=== PATIENT | female | born 1955 | race Caucasian/White ===

== ENCOUNTER 2021-04-02 16:06 | Outpatient (REF) | payer OTHER, SELFPAY ==
--- NOTE | ~2021-04-02 | XR_ITS ---
EXAMINATION: XR CHEST CLINICAL INFORMATION: Cough COMPARISON: None TECHNIQUE: 2 views of the chest were obtained. FINDINGS: The cardiac silhouette is enlarged. There is an AV heart valve ring. There is an aortic valve stent graft. There is a coronary artery stent. Hilar and mediastinal contours are unremarkable. The lungs are clear. There is no pleural effusion or pneumothorax. There are degenerative changes of the spine. There are median sternotomy wires. XR/XR chest 2V IMPRESSION: Enlarged cardiac silhouette and postoperative changes. No evidence for acute disease in the chest.
== END 2021-04-02 16:07 | disposition home or self-care (01) ==
LOC: HO.HMGCX 16:06
PROVIDERS: PCP Internal Medicine; Visit Provider Physician Assistant Medical
DX: R05.9 Cough, unspecified (principal)
CPT/HCPCS: 71046

== ENCOUNTER 2021-04-03 11:14 | Outpatient (REF) | payer OTHER, SELFPAY ==
[2021-04-03 12:38] LABS: Influenza A PCR NEGATIVE (Negative); Influenza B PCR NEGATIVE (Negative); Resp Syncy Virus RNA Qual PCR NEGATIVE (Negative); SARS COV2 PCR INHOUSE NEGATIVE (Negative)
== END 2021-04-03 11:15 | disposition home or self-care (01) ==
LOC: HO.LNP 11:14
PROVIDERS: Visit Provider Physician Assistant Medical
DX: Z20.822 Contact with and (suspected) exposure to COVID-19 (principal); J06.9 Acute upper respiratory infection, unspecified; R05.9 Cough, unspecified
CPT/HCPCS: 0241U

== ENCOUNTER → 2021-07-18 14:18 | Outpatient (BNVA) | payer OTHER, SELFPAY | PROVIDERS: PCP Internal Medicine; Visit Provider Psychiatry & Neurology Neurology ==

== ENCOUNTER → 2022-07-02 13:59 | Outpatient (BNVA) | payer OTHER, SELFPAY | PROVIDERS: PCP Internal Medicine; Visit Provider Psychiatry & Neurology Neurology | DX: G25.81 Restless legs syndrome (principal) ==

== ENCOUNTER 2023-01-19 15:04 | Outpatient (AMB) | payer OTHER, SELFPAY ==
--- NOTE | 2023-01-19 15:07 | MHC.OFFVIS ---
Intake Vital Signs 01/19/23 15:09 Height 5 ft 3 in Weight 218 lb BMI 38.6 BP 122/88 Blood Pressure Location Lt brachial Position Sitting Pulse 50 Pulse Source Pulse Oximeter Pulse Oximetry (%) 98 Oxygen Delivery Method Room Air Intake Visit Reasons: 3 month follow up-confirmed Intake Note: Pt presents today for RLS , pt states legs feel wobbly and heavy. Pt will need refills today Allergies amiodarone Allergy (Unknown, Verified 01/19/23 15:12) Itching ciprofloxacin [Cipro] Allergy (Unknown, Verified 01/19/23 15:12) Facial Swelling Medication List - Last Reconciled 01/19/23 by Veronica Brand MD albuterol sulfate 90 mcg/actuation 0 mcg inhalation atorvastatin 80 mg PO DAILY clopidogrel 75 mg PO DAILY furosemide 20 mg PO BID levothyroxine 150 mcg PO DAILY lorazepam 0.25 mg (1/2 x 0.5 mg) PO DAILY PRN metoprolol succinate ER 100 mg PO BID nitroglycerin 0.4 mg sublingual BEDTIME pantoprazole 40 mg PO DAILY ropinirole ER 4 mg PO BEDTIME sacubitril-valsartan 49-51 mg (Entresto) 1 tab PO BID spironolactone 25 mg PO DAILY warfarin 2.5 mg PO DAILY HPI HPI Comments History of Present Illness Details ? 66y/o female comes for follow up . 7 month ago she had numbness in the left side of the face. she went to [facility] ER- stroke was ruled out.she still has residual numbness in her left nose and cheek, mild . No pain, no weakness. she had a home sleep study it was c/w sleep apnea- in [place]. she is noncompliant with CPAP. ??? she is on requip 1mg tid and is stable . Occasionally she takes an extra requip. ??? 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 Surgical History Aortic valve replaced H/O hysterectomy for benign disease History of appendectomy Mitral valve replaced Social History Alcohol intake: never Patient Tobacco Use Status: Never used Tobacco Use of substances other than those prescribed or required for medical reasons: No Physical Exam Vital Signs: Last Vital Signs Pulse 50 01/19/23 15:09 BP 122/88 01/19/23 15:09 Pulse Ox 98 01/19/23 15:09 Oxygen Delivery Method Room Air 01/19/23 15:09 BMI result Body Mass Index 38.6 Const General: cooperative, healthy appearing and comfortable Nutritional Appearance: overweight Orientation/consciousness: patient oriented x3 Neuro General: patient oriented x3, gait normal, tone normal, moves all extremities, no focal motor deficits and CN's II-XI intact bilaterally Assessment & Plan Assessment & Plan (1) Restless legs syndrome: Code(s): G25.81 - Restless legs syndrome (2) Obstructive sleep apnea: Code(s): G47.33 - Obstructive sleep apnea (adult) (pediatric) (3) Lt facial numbness: Code(s): R20.0 - Anesthesia of skin Plan CPAP . compliance stressed. Suggested to take melatonin 2mg qhs and lorazepam 0.25mg qhs Switch to ropinirole XR 4mgq hs Suggested magnesium at bedtime compression socks will monitor left face numbness Medications: New ropinirole ER 4 mg PO BEDTIME 30 tabs 6RF Discontinued ropinirole Discontinued Reason: Doctor's Order 1 mg PO TID 90 tabs 6RF Coding Level of Care Code Est Pt Level 4 (41771) Diagnoses Restless legs syndrome G25.81 Obstructive sleep apnea G47.33 Lt facial numbness R20.0
[2023-01-19 15:09] VITALS: BP 122/88; PULSE 50; O2SAT 98; BMI 38.6
== END 2023-01-19 15:33 | disposition home or self-care (01) ==
PROVIDERS: Visit Provider Psychiatry & Neurology Neurology
DX: G25.81 Restless legs syndrome (principal); G47.33 Obstructive sleep apnea (adult) (pediatric); R20.0 Anesthesia of skin
CPT/HCPCS: 99214

== ENCOUNTER → 2023-01-19 15:04 | Outpatient (BNVA) | payer OTHER, SELFPAY | PROVIDERS: Visit Provider Psychiatry & Neurology Neurology ==

== ENCOUNTER 2023-03-12 07:25 | Day surgery (SDC) | payer OTHER, SELFPAY ==
[2023-03-12 07:50] VITALS: BP 148/73; PULSE 80; RESP 16; TEMP 36.9; O2SAT 98; BMI 37.2
--- NOTE | 2023-03-12 08:21 | HO.ANESPROP2 ---
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 Hyperlipidemia HTN (hypertension) GERD (gastroesophageal reflux disease) Heart disease Atrial fibrillation Surgical History Surgical History H/O colonoscopy History of appendectomy H/O hysterectomy for benign disease Aortic valve replaced Mitral valve replaced History of Problems with Anesthesia: No Social History Social History Alcohol intake: never Patient Tobacco Use Status: Never used Tobacco Advance Directives: No Advance Directives Information Provided: Yes Meds Allergies Allergy/AdvReac Type Severity Reaction Status Date / Time amiodarone Allergy Unknown Itching Verified 01/19/23 15:12 ciprofloxacin [Cipro] Allergy Unknown Facial Verified 01/19/23 15:12 Swelling Home Medications Medication Instructions Recorded Confirmed Last Taken Type albuterol sulfate 90 mcg/actuation 0 mcg inhalation 04/02/21 01/19/23 Unknown History aerosol inhaler atorvastatin 80 mg tablet 80 mg PO DAILY 04/02/21 01/19/23 Unknown History clopidogrel 75 mg tablet 75 mg PO DAILY 04/02/21 01/19/23 Unknown History metoprolol succinate 100 mg 100 mg PO BID 04/02/21 01/19/23 Unknown History tablet,extended release 24 hr nitroglycerin 0.4 mg sublingual 0.4 mg sublingual BEDTIME 04/02/21 07/02/22 Unknown History tablet pantoprazole 40 mg tablet,delayed 40 mg PO DAILY 04/02/21 01/19/23 Unknown History release sacubitril 49 mg-valsartan 51 mg 1 tab PO BID 04/02/21 01/19/23 Unknown History tablet (Entresto) spironolactone 25 mg tablet 25 mg PO DAILY 04/02/21 01/19/23 Unknown History warfarin 2.5 mg tablet 2.5 mg PO DAILY 04/02/21 01/19/23 Unknown History furosemide 20 mg tablet 20 mg PO BID 01/19/23 01/19/23 Unknown History levothyroxine 125 mcg tablet 150 mcg PO DAILY 01/19/23 01/19/23 Unknown History Exam Exam Date and Time: March 12, 2023 0821 Height,Weight and Vital Signs: Height 5 ft 3 in Weight 95.254 kg Last Vital Signs Temp 98.5 F 03/12/23 07:50 Pulse 80 03/12/23 07:50 Resp 16 03/12/23 07:50 BP 148/73 H 03/12/23 07:50 Pulse Ox 98 03/12/23 07:50 O2 Del Method Room Air 03/12/23 07:50 Airway Mallampati Class: II (edentulous) TM Dist: >3cm Neck ROM: Full Denture: Upper and Lower Loose/Missing/Broken Teeth: Yes, Upper and Lower Heart: irreg irregular rhythm Lungs: CTA Assessment and Plan Assessment Anesthesia Assessment: Anesthesia Plan Discussed and Chart Reviewed Final Anesthetic Review History of Problems with Anesthesia: No NPO: Yes ASA Class: III Final Preanesthetic Review: Meds/Allgs Chart Reviewed, Consent Obtained/Reviewed and Anes Risks/Benef Reviewed Patient Risk: Intermediate Procedure Risk: Low Anesthetic Plan Anesthetic Plan: MAC: Disposition: Standard PACU
--- NOTE | 2023-03-12 09:05 | MHC.SHP ---
Pre-Procedural Eval Section A Date of Service: 03/12/23 Section B Chief Complaint: screening Details of Present Illness: see h&p nochanges Relevant Family History (Specify if Yes): No Relevant Social History: None Present Medications: see Short Stay Collaborative assessment Medical History: No relevant PMH History of Previous Operations: No relevant previous surgery Allergies: Allergies Allergy/AdvReac Type Severity Reaction Status Date / Time amiodarone Allergy Unknown Itching Verified 01/19/23 15:12 ciprofloxacin [Cipro] Allergy Unknown Facial Verified 01/19/23 15:12 Swelling Review of Systems Sugical H&P ROS: Negative: Constitution, Cardiovascular, Respiratory, Neurological, Psychiatric, Hem-Onc, Allergic/Immunologic, Gastrointestinal, Genitourinary, Musculoskeletal, Integumentary, Endocrine and Eyes/Ears/Nose/Throat Exam Surgical H&P Exam: Normal: HEENT, Normal: Heart, Normal: Lungs, Normal: Extremities, Normal: Abdomen, Normal: Skin and Normal: Neurological Plan Diagnosis/Plan: Unchanged I have reviewed the history and physical and performed a pertinent physical examination on my patient. No changes have occurred unless specified. Time Spent With Patient Time: Total time managing care of this patient today ____ minutes.
[2023-03-12 09:45] VITALS: BP 119/99; PULSE 87; RESP 18; TEMP 36.3; O2SAT 95
[2023-03-12 09:48] VITALS: O2SAT 97
--- NOTE | 2023-03-12 09:51 | PM.OP ---
Brief Operative Note Date of Service: 03/12/23 Pre-op diagnosis: see H&P no changes Post-op diagnosis: same Surgeon: Andrew Hernandez MD Anesthesia: MAC Was an Plumber Assistant used for this Procedure?: No Estimated blood loss (mL): 2 Pathology: other Condition: stable Disposition: PACU
[2023-03-12 10:00] VITALS: BP 123/57; PULSE 77; RESP 15; TEMP 36.2; O2SAT 97
--- NOTE | 2023-03-12 10:15 | OP_ITS ---
DATE OF SERVICE: 03/12/2023 SURGEON: Andrew Hernandez MD INDICATIONS: Colon cancer screening. PREOPERATIVE DIAGNOSIS: POSTOPERATIVE DIAGNOSIS: PROCEDURE PERFORMED: Colonoscopy to the terminal ileum with biopsy. ESTIMATED BLOOD LOSS: COMPLICATIONS: ANESTHESIA: Monitored anesthesia care. ASSISTANTS: SPECIMENS: DESCRIPTION OF PROCEDURE: A history and physical was performed. The risks and benefits of the procedure were explained to the patient. Informed consent was obtained. The patient was placed in the left lateral decubitus position. A digital rectal exam was performed and was found to be normal. The Olympus pediatric video colonoscope was introduced into the rectum and advanced to the cecum. The cecum was identified by transillumination, palpation, and identification of ileocecal valve. Examination was performed. The scope was removed. She tolerated the procedure well and was returned to the recovery area in stable condition. FINDINGS: The terminal ileum was examined and appeared normal. The visualized colonic mucosa was normal. The quality of the prep was good. In the right colon just above the ileocecal valve, less than 5 mm sessile polyp, which was removed with a biopsy forceps. No other polyps were identified. Retroflexed examination showed some small internal hemorrhoids. IMPRESSION: Colon polyp. RECOMMENDATION: Follow up the biopsy results. MD PAVEL May/MICHEALL / [id number]
== END 2023-03-12 10:35 | disposition home or self-care (01) ==
PROVIDERS: PCP Internal Medicine; Visit Provider Internal Medicine Gastroenterology
PROC: 0DJD8ZZ Inspection of Lower Intestinal Tract, Via Natural or Artificial Opening Endoscopic (ICD-10-PCS; CPT 45378; principal; 2023-03-12 08:50)
DX: Z12.11 Encounter for screening for malignant neoplasm of colon (principal); Z80.0 Family history of malignant neoplasm of digestive organs; D12.2 Benign neoplasm of ascending colon; K64.8 Other hemorrhoids; I48.91 Unspecified atrial fibrillation; I25.2 Old myocardial infarction; I10 Essential (primary) hypertension; Z95.2 Presence of prosthetic heart valve; E78.00 Pure hypercholesterolemia, unspecified; E03.9 Hypothyroidism, unspecified; Z79.01 Long term (current) use of anticoagulants; Z79.899 Other long term (current) drug therapy; Z98.890 Other specified postprocedural states
CPT/HCPCS: 45380; 36415; 85610; 88305

== ENCOUNTER 2023-05-25 14:48 | Outpatient (AMB) | payer OTHER, SELFPAY ==
--- NOTE | 2023-05-25 14:54 | A.OFFVIS_ITS ---
Intake Vital Signs 05/25/23 14:55 Height 5 ft 3 in BMI Reason not done Patient refused/unable BP 132/76 Blood Pressure Location Rt brachial Position Sitting Pulse 78 Pulse Source Pulse Oximeter Pulse Oximetry (%) 99 Oxygen Delivery Method Room Air Intake Visit Reasons: 4m follow up - Confirmed Allergies amiodarone Allergy (Unknown, Verified 05/25/23 14:57) Itching ciprofloxacin [Cipro] Allergy (Unknown, Verified 05/25/23 14:57) Facial Swelling Medication List - Last Reconciled 05/25/23 by Veronica Brand MD albuterol sulfate 90 mcg/actuation 0 mcg inhalation atorvastatin 80 mg PO DAILY clopidogrel 75 mg PO DAILY furosemide 20 mg PO BID ketorolac 0.5% 1 drp ophthalmic (eye) QID levothyroxine 150 mcg PO DAILY lorazepam 0.25 mg (1/2 x 0.5 mg) PO DAILY PRN metoprolol succinate ER 100 mg PO BID nitroglycerin 0.4 mg sublingual BEDTIME pantoprazole 40 mg PO DAILY ropinirole 1 mg PO TID ropinirole ER 4 mg PO BEDTIME sacubitril-valsartan 49-51 mg (Entresto) 1 tab PO BID spironolactone 25 mg PO DAILY warfarin 2.5 mg PO DAILY HPI HPI Comments History of Present Illness Details ? 67y/o female comes for follow up . she was admitted for a CVA ? retinal artery occlusion. she has left visual field loss. she was at [facility] . she was seen by retina specialist who gave her eye drops . she had a home sleep study it was c/w sleep apnea- in [place]. she was noncompliant with CPAP but declines repeat study. ??? she is on requip XR 4mg qhs and is stable . Occasionally she takes an extra requip. ??? 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 Hyperlipidemia HTN (hypertension) GERD (gastroesophageal reflux disease) Heart disease Atrial fibrillation Surgical History H/O colonoscopy History of appendectomy H/O hysterectomy for benign disease Aortic valve replaced Mitral valve replaced Social History Alcohol intake: never Patient Tobacco Use Status: Never used Tobacco Physical Exam Vital Signs: Last Vital Signs Pulse 78 05/25/23 14:55 BP 132/76 05/25/23 14:55 Pulse Ox 99 05/25/23 14:55 Oxygen Delivery Method Room Air 05/25/23 14:55 Const General: cooperative, healthy appearing and comfortable Nutritional Appearance: overweight Orientation/consciousness: patient oriented x3 Neuro General: patient oriented x3, gait normal, tone normal, moves all extremities, no focal motor deficits and CN's II-XI intact bilaterally Assessment & Plan Assessment & Plan (1) Restless legs syndrome: Code(s): G25.81 - Restless legs syndrome (2) Obstructive sleep apnea: Code(s): G47.33 - Obstructive sleep apnea (adult) (pediatric) (3) Lt facial numbness: Code(s): R20.0 - Anesthesia of skin Plan Declines CPAP or repeta study . discussed baout [facility]. she will call me if she decides to go forward . Ropinirole XR 4mgq hs Suggested magnesium at bedtime compression socks will monitor left face numbness Medications: Discontinued ropinirole Discontinued Reason: Patient no longer taking 1 mg PO TID 90 tabs 0RF Coding Level of Care Code Est Pt Level 4 (79554) Diagnoses Restless legs syndrome G25.81 Obstructive sleep apnea G47.33 Lt facial numbness R20.0
[2023-05-25 14:55] VITALS: BP 132/76; PULSE 78; O2SAT 99
== END 2023-05-25 15:11 | disposition home or self-care (01) ==
PROVIDERS: PCP Internal Medicine; Visit Provider Psychiatry & Neurology Neurology
DX: G25.81 Restless legs syndrome (principal); G47.33 Obstructive sleep apnea (adult) (pediatric); R20.0 Anesthesia of skin
CPT/HCPCS: 99214

== ENCOUNTER → 2023-05-25 14:48 | Outpatient (BNVA) | payer OTHER, SELFPAY | PROVIDERS: PCP Internal Medicine; Visit Provider Psychiatry & Neurology Neurology | DX: G25.81 Restless legs syndrome (principal); G47.33 Obstructive sleep apnea (adult) (pediatric); R20.0 Anesthesia of skin ==

== ENCOUNTER 2024-02-03 15:09 | Outpatient (AMB) | payer MEDICARE, SELFPAY ==
--- NOTE | 2024-02-03 15:45 | MHC.OFFVIS ---
Vital Signs 02/03/24 15:46 Height 5 ft 3 in BMI Reason not done Patient refused/unable BP 112/72 Blood Pressure Location Rt brachial Position Sitting Intake Visit Reasons: 6 mo f/u Intake Note: Pt presents for 8 month follow up for left facial numbness. Cut Out Press Operator Required: No Allergies amiodarone Allergy (Unknown, Verified 02/03/24 15:46) Itching ciprofloxacin [Cipro] Allergy (Unknown, Verified 02/03/24 15:46) Facial Swelling Medication List - Last Reconciled 02/03/24 by Veronica Brand MD albuterol sulfate 90 mcg/actuation 0 mcg inhalation atorvastatin 80 mg PO DAILY clopidogrel 75 mg PO DAILY furosemide 20 mg PO BID ketorolac 0.5% 1 drp ophthalmic (eye) QID levothyroxine 150 mcg PO DAILY lorazepam 0.25 mg (1/2 x 0.5 mg) PO DAILY PRN metoprolol succinate ER 100 mg PO BID nitroglycerin 0.4 mg sublingual BEDTIME pantoprazole 40 mg PO DAILY ropinirole 1-4 tabs qhs orally bedtime; administer 1-3 hours before bedtime ropinirole ER 4 mg PO BEDTIME 90 days sacubitril-valsartan 49-51 mg (Entresto) 1 tab PO BID spironolactone 25 mg PO DAILY warfarin 2.5 mg PO DAILY HPI Comments Details: ? 68y/o female comes for follow up . she was admitted for a CVA ? In Jun 2022 retinal artery occlusion. she has left visual field loss.left face numbness have resolved she was at [facility] . she was seen by retina specialist who gave her eye drops .Her recent eval - she was told that there was significant improvement she had a home sleep study it was c/w sleep apnea- in [place]. she was noncompliant with CPAP but declines repeat study. ??? she is on requip XR 4mg qhs and was stable but she feels her symptoms have increased and needs a higher dose .she is also concerned about the cost. Occasionally she takes an extra requip. ??? 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 Hyperlipidemia HTN (hypertension) GERD (gastroesophageal reflux disease) Heart disease Atrial fibrillation Surgical History H/O colonoscopy History of appendectomy H/O hysterectomy for benign disease Aortic valve replaced Mitral valve replaced Social History Alcohol intake: never Patient Tobacco Use Status: Never used Tobacco Physical Exam Vital Signs: Last Vital Signs BP 112/72 02/03/24 15:46 Const General: cooperative, healthy appearing and comfortable Nutritional Appearance: overweight Orientation/consciousness: patient oriented x3 Neuro General: patient oriented x3, gait normal, tone normal, moves all extremities, no focal motor deficits and CN's II-XI intact bilaterally Assessment & Plan Assessment & Plan (1) Restless legs syndrome: Code(s): G25.81 - Restless legs syndrome Category: Medical (2) Obstructive sleep apnea: Code(s): G47.33 - Obstructive sleep apnea (adult) (pediatric) Category: Medical Plan Declines CPAP or repeat study . discussed about [facility]. she will call me if she decides to go forward . Increase Ropinirole XR 6mgq hs . she will enroll in [facility] pharmacy and call us back Continue requip 0.25 as needed Suggested magnesium at bedtime compression socks Medications: Changed From ropinirole ER 4 mg PO BEDTIME 90 days 90 tabs 6RF To ropinirole ER 6 mg PO BEDTIME 90 days 90 tabs 6RF From ropinirole 1-4 tabs qhs orally bedtime; administer 1-3 hours before bedtime 120 tabs 3RF To ropinirole 1-4 tabs qhs orally bedtime; administer 1-3 hours before bedtime 90 days 360 tabs 3RF Coding Level of Care Code Est Pt Level 4 (15119) Diagnoses Restless legs syndrome G25.81 Obstructive sleep apnea G47.33
[2024-02-03 15:46] VITALS: BP 112/72
== END 2024-02-03 16:03 | disposition home or self-care (01) ==
PROVIDERS: PCP Internal Medicine; Visit Provider Psychiatry & Neurology Neurology
DX: G25.81 Restless legs syndrome (principal); G47.33 Obstructive sleep apnea (adult) (pediatric)
CPT/HCPCS: 99214

== ENCOUNTER → 2024-02-03 15:09 | Outpatient (BNVA) | payer MEDICARE, SELFPAY | PROVIDERS: PCP Internal Medicine; Visit Provider Psychiatry & Neurology Neurology | DX: G25.81 Restless legs syndrome (principal); G47.33 Obstructive sleep apnea (adult) (pediatric) | CPT/HCPCS: 99212 ==

== ENCOUNTER 2024-08-24 09:48 | Outpatient (AMB) | payer MEDICARE, SELFPAY ==
[2024-08-24 10:07] VITALS: BP 106/78; PULSE 80; O2SAT 98; BMI 35.8
--- NOTE | 2024-08-24 10:07 | A.OFFVIS_ITS ---
Vital Signs 08/24/24 10:07 Height 5 ft 3 in Weight 202 lb 2 oz BMI 35.8 BP 106/78 Blood Pressure Location Lt brachial Position Sitting Pulse 80 Pulse Source Pulse Oximeter Pulse Oximetry (%) 98 Oxygen Delivery Method Room Air Intake Visit Reasons: Follow up 6 mo Intake Note: Patient presents for 6 month follow up ELDER. Declines CPAP or repeat study. Ropinirole is out of stock(has been for while) at [facility] looking for the 12mg and she can cut them in half instead. Allergies amiodarone Allergy (Unknown, Verified 08/24/24 10:10) Itching ciprofloxacin [Cipro] Allergy (Unknown, Verified 08/24/24 10:10) Facial Swelling HPI Comments Details: ? 68y/o female comes for follow up for RLS and Sleep apnea. She had a TIA in Jun 2022 with [facility], and complete work up at [facility]. She has L visual file loss and L. sided facial neuropathy which resolved. She sees a retina specialist and now takes Pataday OTC as needed, vision had significantly improved, now wears glasses for reading and driving. She had a Mitral v replacement with [facility] valve and / Aortic Valve stent replacement, She had a sleep study completed was diagnosed with ELDER, never started CPAP. 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 She is on requip XR 6mg qhs and it helps her to sleep at night as her symptoms are worse at night, with numbness, uncomfortable tingling sensation, she can not stop moving her legs, walks around and stands up. She c/o of swelling in her legs, forgets to put on her compression stockings and edema on 2 diuretics. Her memory, and mood are good most days well managed with Lorazepam 0.5mg as needed for anxiety. Her diet is an ongoing issue and would like to see weight management, however she has lost 20lbs in preparation for her son's wedding. 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 Hyperlipidemia HTN (hypertension) GERD (gastroesophageal reflux disease) Heart disease Atrial fibrillation Surgical History H/O colonoscopy History of appendectomy H/O hysterectomy for benign disease Aortic valve replaced Mitral valve replaced Social History Alcohol intake: never Patient Tobacco Use Status: Never used Tobacco Physical Exam Vital Signs: Last Vital Signs Pulse 80 08/24/24 10:07 BP 106/78 08/24/24 10:07 Pulse Ox 98 08/24/24 10:07 Oxygen Delivery Method Room Air 08/24/24 10:07 BMI result Body Mass Index 35.8 Const General: cooperative, comfortable and no acute distress Orientation/consciousness: patient oriented x3 HEENT Face and sinus: Yes other (mild facial asymmety noted on smile.) Teeth and gingiva: other ([place] score is 4) Eyes Pupils: Equal, round and reactive pupils present Neck Neck: Yes other (Limited ROM to the R. Trapezius and Scalenes tight) Resp Effort & Inspection: normal respiratory effort and able to speak in complete sentences Neuro General: patient oriented x3 Cranial nerves: Yes Facial sensation intact/muscles of mastication intact, Yes Equal, round and reactive pupils present, Yes Normal accommodation reflex present, Yes Nystagmus not present, Yes Midline tongue present, Yes Ability to bilaterally rotate head present (Limited ROM to the R) and Yes Ability to bilaterally elevate shoulders present Gait exam (Neuro): Normal gait present Motor exam (neuro): 5/5 motor strength present throughout and Tremors during motor activity present (LUE hand tremor mild ) Deep tendon reflexes (DTR's): Right triceps reflex intensity grade: 2+, Left triceps reflex intensity grade: 2+, Rt Biceps (C5, C6): 2+, Left biceps reflex intensity grade: 2+, Right brachioradialis reflex intensity grade: 2+, Left brachioradialis reflex intensity grade: 2+, Right patellar reflex intensity grade: 2+ and Left patellar reflex intensity grade: 2+ Coordination: [id number] test normal Psych Appearance: grossly normal Thought process: Normal thought process present Thought content: Normal thought content present Assessment & Plan Assessment & Plan (1) Restless legs syndrome: Code(s): G25.81 - Restless legs syndrome Category: Medical (2) Obstructive sleep apnea: Code(s): G47.33 - Obstructive sleep apnea (adult) (pediatric) Category: Medical (3) Fatigue due to sleep pattern disturbance: Code(s): R53.83 - Other fatigue; G47.9 - Sleep disorder, unspecified Category: Medical (4) Atrial fibrillation: Code(s): I48.91 - Unspecified atrial fibrillation Category: Medical Qualifiers: Atrial fibrillation type: unspecified Qualified Code(s): I48.91 - Unspecified atrial fibrillation Plan Excessive Daytime fatigue will send her for HST RLS will continue her on Ropinorole XR 6mg qhs, will take one additional pill if needed for worsening symptoms as needed due to sleep difficulties. magnesium 400mg PO at bedtime B6 for nerve pain 100mg PO at bedtime Compression stockings daily 2-4 hours at a minimum. Orders: Orders RT home sleep study Today G47.19 - Other hypersomnia Referrals Medical Weight Management Referral E66.01 - Morbid (severe) obesity due to excess calories Medications: Changed From ropinirole ER 6 mg PO BEDTIME 90 days 90 tabs 6RF G25.81 - Restless legs syndrome To ropinirole ER May take 1- tablets daily at bedtime for Restless leg syndrome. 12 mg (2 x 6 mg) PO BEDTIME 90 days 180 tabs 6RF Restless Legs Syndrome MDD 12 mg G25.81 - Restless legs syndrome Refilled lorazepam 0.25 mg (1/2 x 0.5 mg) PO DAILY PRN 15 tabs 3RF anxiety Patient Instructions: Sleep Hygiene provided: set a scheduled bedtime and wake time to help regulate the circadian rhythm and balance the release of pituitary hormones. Sleep in a dark room, temperatures below 68 degrees, and no devices n bed. Limit caffeinated products 6 hours prior to bed, and limit fluids 2-4 hours prior to bed. Gentle night yoga, diffusing essential oils, and playing soft music can be relaxing. RLS will trial her on 6-12 mg of Ropinorole, may use RLS cream, Diclofenac, Lidocaine, Bengay, icy hot, massage and weighted blankets as needed. Compression stockings daily for a minimum of 2-4 hours. Transplant Case Manager - fu in 6 month or sooner, bilateral leg edema, elevate and take diuretics as prescribed. Christine labs requested prior to starting on magnesium 400mg and B6, check B12 and Iron/ folate. Coding Level of Care Code Est Pt Level 4 (09882) Diagnoses Restless legs syndrome G25.81 Obstructive sleep apnea G47.33 Fatigue due to sleep pattern disturbance R53.83; G47.9 Atrial fibrillation, unspecified type I48.91 Atrial fibrillation type: unspecified Time Spent (min) 30 Comment Evaluation of sleep
--- OUTSIDE RECORDS SUMMARY | 2024-08-24 10:57 | XMS_ITS | Patient Health Record ---
Author Organization [facility] Address [address] [facility] [address] [place] [address] Care Team Providers Care Director Global Sales Name Role Phone Sarah Lopez Unavailable [phone] Allergies Allergen (clinical drug ingredient) Drug/Non Drug Allergy documented on EMR Reaction Allergy Type Onset Date Status amiodarone Amiodarone HCl Hot Feeling Drug Allergy Active ciprofloxacin Cipro Face Swelling Drug Allergy Active Reason For Referral No Information Medications Medication SIG (Take, Route, Frequency, Duration) Notes Start Date End Date Status rOPINIRole HCl 0.25 MG TAKE 1 TABLET BY MOUTH FOUR TIMES A DAY Oral for 90 Active Warfarin Sodium 2.5 MG 1 tablet Orally a s directed Active Metoprolol Succinate ER 100 MG 1 tablet Orally BID am and pm Active Spironolactone 25 MG 1 tablet Orally Active LORazepam 0.5 MG 0.5 ml as needed Orally as needed Active Atorvastatin Calcium 80 MG 1 tablet Orally an night Active Lasix 20 MG 1 tablet Orally as needed Unknown dose Active Losartan Potassium 50 MG 1 tablet Orally Twice a day Active Nitroglycerin 0.4 MG Sublingual as needed Active Pantoprazole Sodium 40 MG 1 tablet Orall y Once a day Active Clopidogrel Bisulfate 75 MG 1 tablet Orally Once a day Active Isosorbide Mononitrate ER 30 MG TAKE 1 TABLET BY MOUTH IN THE MORNING Oral for 90 Active Levothyroxine Sodium 125 MCG 1 tablet on an empty stomach in the morning Orally Once a day Active Social History Tobacco Use: Social History Observation Description Date Details (start date - stop date) Never Smoker NA - NA Tobacco Use/Smoking Question Answer Notes Are you a nonsmoker Alcohol Screen (Audit-C) Question Answer Notes Did you have a drink containing alcohol in the p ast year? No Points 0 Interpretation Negative Sexual History Question Answer Notes Had sex in the past 12 months (vaginal, oral, or anal)? No Have you ever had a Sexually transmitted disease ? No Problems Problem Type SNOMED Code ICD Code Onset Dates Problem Status W/U Status Risk Notes Problem Postmenopausal atrophic vaginitis (70434480) Postmenopausal atrophic vaginitis (N95.2) Active confirmed Problem Rheumatic heart disease (81159454) Rheumatic heart disease, unspecified (I09.9) Active confirmed Plan Of Treatment Pending Test Test Name Order Date MAMMOGRAM, SCREENING 12/11/2019 BONE DENSITY 02/11/2018 MM Digital Mammo Screening 12/11/2019 Insurance Providers Payer Name Payer Address Payer Phone Subscriber Number Group Number Insured Name Patient Relationship to Insured Coverage Start Date Coverage End Date [facility] [address] [place] [address] [id number] DIPTI TRISTAN Self - patient is the insured Medical (General) History Medical History History ICD Code Essential (primary) hypertension I10 Nonrheumatic mitral (valve) prolapse I34 .1 Unspecified atrial fibrillation I48.91 Myocardial infarction type 2 I21.A1 Inconclusive mammogram R92.2 Surgical History Surgery Date(Month/Year) Appendectomy Cardiac Stents 2014, 2015 Mitral Valve Replaced Open Heart Surgery 08/01/96 Colonoscopy 2014 Hospitalization History Reason Date(Month/Year) 2 Vaginal Deliveries Heart Cath 02/08/18 Heart Attack 05/16/15, 04/10/16 See Surgical Hx
--- OUTSIDE RECORDS SUMMARY | 2024-08-24 10:57 | XMS_ITS | Encounter Summary ---
Author Organization [facility] [place] [address] Care Team Providers Care Safe Deposit Box Rental Clerk Name Role Phone Soto You MD Primary Care Provider [phone] Reason for Referral * Imaging (Routine) - Closed Specialty Diagnoses / Procedures Referred By Nereida barr Referred To Contact Radiology Diagnoses Abnormality of left breast on screening mammogram Procedures MG Mammo Digital Diagnostic Left Soto You MD [address] [place] [address] Phone: tel: fax: [address] [address] Phone: tel: Referral ID Status Reason Start Date Expiration Date Visits Re quested Visits Authorized [id number] Closed 03/25/2024 03/25/2025 1 1 Reason for Visit * Imaging (Routine) - Closed Specialty Diagnoses / Procedures Referred By Nereida barr Referred To Contact Radiology Diagnoses Abnormality of left breast on screening mammogram Procedures MG Mammo Digital Diagnostic Left Soto You MD [address] [place] [address] Phone: tel: fax: [address] [address] Phone: tel: Referral ID Status Reason Start Date Expiration Date Visits Re quested Visits Authorized [id number] Closed 03/25/2024 03/25/2025 1 1 Encounter Details Date Type Department Care Team (Latest Contact Info) Description 08/18/2024 8:10 AM EDT - 08/18/2024 11:59 PM EDT Hospital [facility] at [address] [phone] Abnormality of left breast on screening mammogram Discharge Disposition: Home or Self Care Social History Tobacco Use Types Packs/Day Years Used Date Smoking Tobacco: Never Smokeless Tobacco: Never Alcohol Use Standard Drinks/Week Comments No 0 (1 standard drink = 0.6 oz pur e alcohol) Comments No Sex and Gender Information Value Date Recorded Sex Assigned at Not on file Legal Sex Female 11:48 AM EST Gender Identity Female 04/29/2020 9:19 AM EST Sexual Orientation Not on file documented as of this encounter Last Filed Vital Signs Vital Sign Reading Time Taken Comments Blood Pressure - - Pulse - - Temperature - - Respiratory Rate - - Oxygen Saturation - - Inhaled Oxygen Concentration - - Weight 90.3 kg (199 lb) 08/18/2024 8:27 AM EDT Height 160 cm (5' 3 ) 08/18/2024 8:27 AM EDT Body Mass Index 35.25 08/18/2024 8:27 AM EDT documented in this encounter Medications at Time of Discharge albuterol HFA (PROAIR HFA ; PROVENTIL HFA ; VENTOLIN HFA) 90 mcg/actuation inhaler INHALE 2 PUFFS BY MOUTH EVERY 6 HOURS NEEDED FOR COUGH/WHEEZE 6.7 each 06/20/2024 atorvastatin (LIPITOR) 80 mg tablet TAKE 1 TABLET BY MOUTH EVERY DAY 90 tablet 06/20/2024 clopidogreL (PLAVIX) 75 mg tablet Take 1 tablet (75 mg total) by mouth 1 (one) time each day. for 90 days cyanocobalamin (VITAMIN B-12) 1,000 mcg tablet Take 1 tablet (1,000 mcg total) by mouth 1 (one) time each day. 30 tablet 2 07/06/2024 dapagliflozin propanediol (FARXIGA) 10 mg tablet Take 1 tablet (10 mg total) by mouth 1 (one) time each day. Entresto 49-51 mg per tablet Take 1 tablet by mouth 2 (two) times a day. ferrous sulfate 325 mg (65 mg iron) EC tablet Take 1 tablet (325 mg total) by mouth 1 (one) time each day with breakfast. Do not crush, chew, or split. 30 each 2 07/06/2024 fluticasone propionate (FLONASE) 50 mcg/actuation nasal spray Administer 2 sprays into affected nostril(s). 07/16/2022 furosemide (LASIX) 20 mg tablet TAKE 2 TABLETS IN THE MORNING AND 1 TABLET IN AFTERNOON levothyroxine (SYNTHROID, LEVOTHROID) 150 mcg tablet TAKE 1 TABLET BY MOUTH EVERY DAY 90 tablet 1 07/31/2024 LORazepam (ATIVAN) 0.5 mg tablet TAKE 1/2 TABLET BY MOUTH DAILY NEEDED FOR ANXIETY 02/03/2024 metoprolol succinate (TOPROL-XL) 100 mg 24 hr tablet Take 1 tablet (100 mg total) by mouth 2 (two) times a day. for 90 days nitroglycerin (NITROSTAT) 0.[address] 1 tablet (0.4 mg total) under the tongue every 5 (five) minutes if needed for chest pain. pantoprazole (PROTONIX) 40 mg EC tablet TAKE 1 TABLET BY MOUTH EVERY DAY 90 tablet 06/20/2024 rOPINIRole (REQUIP) 0.25 mg tablet TAKE 1 TO 4 TABLETS BY MOUTH 1 TO 3 HOURS AT BEDTIME ropinirole HCl (ROPINIROLE ORAL) Take 6 mg by mouth at bedtime. spironolactone (ALDACTONE) 25 mg tablet TAKE 1 TABLET BY MOUTH EVERY DAY 90 tablet 1 07/31/2024 vitamin C tablet Take 1 tablet (100 mg total) by mouth 1 (one) time each day. 30 tablet 2 07/06/2024 warfarin (COUMADIN) 2.5 mg tablet Take 1-2 tablets (2.5-5 mg total) by mouth. 02/22/2024 triamcinolone (KENALOG) 0.1 % cream Apply to affected area 1-2 times daily as needed. 15 g 06/22/2024 documented as of this encounter Discharge Disposition Disposition Code Departure Means Destination Home or Self Care documented in this encounter Plan of Treatment Upcoming Encounters Date Type Department Care Team (Late st Contact Info) Description 09/04/2024 8:30 AM EDT Anticoagulation - Warfarin Visit Coumadin [facility] - [address] [phone] 12/28/2024 8:30 AM EDT Office Visit [facility] - [address] [phone] Soto You MD [address] [place] [address] 02/20/2025 8:00 AM EDT [facility]ment [facility] [address] [phone] documented as of this encounter Procedures Procedure Name Priority Date/Time Associated Diagnosis Comments MG MAMMO DIGITAL DIAGNOSTIC LEFT Routine 08/18/2024 10:34 AM EDT Abnormality of left breast on screening mammogram documented in this encounter Results * MG Mammo Digital Diagnostic Left (08/18/2024 10:34 AM EDT) Anatomical Region Laterality Modality Breast Left Mammography 08/18/2024 9:11 AM EDT Impressions 08/18/2024 9:20 AM EDT Stable appearance of coarse calcifications posteriorly in the upper outer quadrant of the left breast as compared to 02/18/2024 and 02/14/2024. ??Bilateral mammography in 6 months is recommended which will provide for additional short-term follow-up of the left breast and annual mammography of the right breast. BI-RADS CATEGORY: 3 - PROBABLY BENIGN RECOMMENDATION: Short Interval Follow-up is recommended for bilateral breasts in 6 months. Mammo Location: [facility], [address] [place] [address] -------- FINAL REPORT -------- Dictated By: Cuauhtemoc Storey Dictated Date: 08/18/2024 09:11 ET Assigned Physician: Cuauhtemoc Storey Reviewed and Electronically Signed By: Cuauhtemoc Storey Signed Date: 08/18/2024 09:20 ET Workstation ID: [id number] Transcribed By: Self Edit Transcribed Date: 08/18/2024 09:11 ET Narrative 08/18/2024 9:20 AM EDT CLINICAL: The patient is a 68 years Female presenting for follow-up of coarse calcifications posteriorly in the upper-outer quadrant of the left breast. ??As per report of the previous mammogram performed 02/18/2024, the patient is reluctant to undergo biopsy as she has a significant cardiac history and takes Coumadin and Plavix; anticoagulation cannot be discontinued and therefore biopsy required would require a heparin bridge. ??She has therefore opted for continued mammographic surveillance. COMPARISON: Most recently 02/18/2024 and most remotely 12/05/2018. ?? TECHNIQUE: Digital mammography of the left breast in spot magnification true lateral and CC projections is performed. ??Computer aided detection utilizing the iCAD system was utilized. FINDINGS: Again seen is a group of coarse calcifications without significant change as compared to recent prior studies performed 02/18/2024 and 02/14/2024. ??There has been no increase in number of calcifications and no pleomorphism is seen. TISSUE DENSITY: There are scattered areas of fibroglandular density. (BI-RADS category B) Procedure Note Cuauhtemoc Storey MD - 08/18/2024 CLINICAL: The patient is a 68 years Female presenting for follow-up ofcoarse calcifications posteriorly in the upper-outer quadrant of the leftbreast. As per report of the previous mammogram performed 02/18/2024, thepatient is reluctant to undergo biopsy as she has a significant cardiachistory and takes Coumadin and Plavix; anticoagulation cannot bediscontinued and therefore biopsy required would require a heparin bridge.She has therefore opted for continued mammographic surveillance. COMPARISON: Most recently 02/18/2024 and most remotely 12/05/2018. TECHNIQUE: Digital mammography of the left breast in spot magnificationtrue lateral and CC projections is performed. Computer aided detectionutilizing the iCAD system was utilized. FINDINGS: Again seen is a group of coarse calcifications withoutsignificant change as compared to recent prior studies performed 02/18/2024nd 02/14/2024. There has been no increase in number of calcifications andno pleomorphism is seen. TISSUE DENSITY: There are scattered areas of fibroglandular density.(BI-RADS category B) IMPRESSION: Stable appearance of coarse calcifications posteriorly in the upper outerquadrant of the left breast as compared to 02/18/2024 and 02/14/2024.Bilateral mammography in 6 months is recommended which will provide foradditional short-term follow-up of the left breast and annual mammographyof the right breast. BI-RADS CATEGORY: 3 - PROBABLY BENIGN RECOMMENDATION: Short Interval Follow-up is recommended for bilateral breasts in 6 months. Mammo Location: [facility], [facility], [address] [place] [address] -------- FINAL REPORT -------- Dictated By: Cuauhtemoc Storey Dictated Date: 08/18/2024 09:11 ET Assigned Physician: Cuauhtemoc Storey Reviewed and Electronically Signed By: Cuauhtemoc Storey Signed Date: 08/18/2024 09:20 ET Workstation ID: [id number] Transcribed By: Self Edit Transcribed Date: 08/18/2024 09:11 ET Soto You MD IMG BI PROCEDURES Final Result documented in this encounter Visit Diagnoses Diagnosis Abnormality of left breast on screening mammogram documented in this encounter Care Teams Safe Deposit Box Rental Clerk Relationship Specialty Start Date End Date Soto You MD [address] [place] [address] PCP - General Internal Medicine 04/29/16 documented as of this encounter
--- OUTSIDE RECORDS SUMMARY | 2024-08-24 10:57 | XMS_ITS ---
Author Organization [facility] Address [address] [place] [address] Care Team Providers Care Process Expert Name Role Phone Kenyatta FREIRE, Soto Primary Care Provider Andrew Starks Jr REASON FOR VISIT screening Encounters Encounter Location Date Provider Diagnosis [facility] Outpatient [address] [place] [phone] 03/12/2023 Andrew Hernandez Jr Encounter for screening colonoscopy Z12.11 and Colon polyps K63.5 Assessments Encounter Date Diagnosis (ICD Code) Assessment Notes Treatment Notes Treatment Clinical Notes Section Notes 03/12/2023 Encounter for screening colonoscopy (ICD-10 - Z12.11) 03/12/2023 Colon polyps (ICD-10 - K63.5) Plan Of Treatment No Information Progress Notes * KUN ERANYOANAB: 7 (68 yo F)Acc No.[id number]:03/12/2023 COLON WITH MAC Patient:?ERAN TRISTANTHIA Provider:?Andrew Hernandez MD :1955???Age:67 Y???Sex:Female D ate:03/12/2023 Address:[facility] [phone] Pcp:Soto You MD Subjective: * Chief Complaints: * ???1. Screening. * Medical History:? Objective: * Vitals:? Assessment: * Assessment: 1.?Encounter for screening c olonoscopy - Z12.11 (Primary)???2.?Colon polyps - K63.5??? Plan: * Treatment: * Procedure Codes:?95953 COLON OSCOPY AND BIOPSY * * The named appointment provid er may or may not be the originator of this progress note, and it is not deemed complete until electronically signed by the appointment provider. Sign off status: Pending * Provider:?Andrew Hernandez MD Date:?1 Generated for Olaf pope/Jareth/Arsalanitting on:?08/24/2024 10:57 AM EDT
--- OUTSIDE RECORDS SUMMARY | 2024-08-24 10:57 | XMS_ITS | Encounter Summary ---
Author Organization [facility] [place] [address] Care Team Providers Care Perioperative Educator Name Role Phone Soto You MD Primary Care Provider [phone] Encounter Details Date Type Department Care Team (Latest Contact Info) Description 08/14/2024 8:20 AM EDT Anticoagulation - Warfarin Visit Coumadin [address] [phone] H/O mechanical aortic valve replacement (Primary Dx); Hx of mitral valve replacement with mechanical valve Social History Tobacco Use Types Packs/Day Years [...] on file documented as of this encounter Plan of Treatment Upcoming Encounters Date Type Department Care Team (Late st Contact Info) Description 09/04/2024 8:30 AM EDT Anticoagulation - Warfarin Visit [facility] Clinic [address] [phone] 12/28/2024 8:30 AM EDT [facility] [place] [address] [place] [address] Soto You MD [address] [place], [place] 02/20/2025 8:00 AM EDT [facility]ment [facility] [address] [phone] documented as of this encounter Procedures Procedure Name Priority Date/Time Associated Diagnosis Comments POC PROTIME INR BLOOD Routine 08/14/2024 H/O mechanical aortic valve replacement Hx of mitral valve replacement with mechanical valve documented in this encounter Results * POC Protime INR Blood (08/14/2024) Lot Number INR POC 2.5 Prothrombin Time POC Exp Date Blood 08/14/2024 Soto You MD POINT OF CARE TEST ENTER/EDIT OR DERABLES Final Result documented in this encounter Visit Diagnoses Diagnosis H/O mechanical aortic valve replacement- Primary Hx of mitral valve replacement with mechanical valve documented in this encounter Care Teams Perioperative Educator Relationship Specialty Start Date End Date Soto You MD [address] [place] [address] PCP - General Internal Medicine 04/29/16 documented as of this encounter
--- OUTSIDE RECORDS SUMMARY | 2024-08-24 10:57 | XMS_ITS ---
Author Organization [facility] Address [address] [place] [address] Care Team Providers Care Interventional Nurse Name Role Phone Kenyatta FREIRE, [facility] Primary Care Provider Andrew Starks Jr REASON FOR VISIT pathology Encounters Encounter Location Date Provider Diagnosis [facility] [address] [place] [address] 03/18/2023 Andrew Hernandez Jr Plan Of Treatment No Information Progress Notes * HANERAN CLARKYOANAB: 7 (67 yo F)Acc No.[id number]:03/18/2023 Patient:?DIPTI TRISTAN :1955???Age:67 Y???Sex:Female Address:[address] [place] [address] * true * Date:? Generated for Printi ng/Fachkiag/eTransmitting on:?08/24/2024 10:56 AM EDT
--- OUTSIDE RECORDS SUMMARY | 2024-08-24 10:57 | XMS_ITS | Encounter Summary ---
Author Organization [facility] [place] [address] Care Team Providers Care Certifed Refrigeration Operator Name Role Phone Soto You MD Primary Care Provider [phone] Encounter Details Date Type Department Care Team (Latest Contact Info) Description 08/21/2024 8:30 AM EDT Anticoagulation - Warfarin Visit Coumadin [address] [phone] H/O mechanical aortic valve replacement (Primary Dx); [...] EDT Anticoagulation - Warfarin Visit Coumadin Clinic [address] [phone] 12/28/2024 8:30 AM EDT Office Visit [facility] [place] [address] [place] [address] Soto You MD [address] [place], [place] 02/20/2025 8:00 AM EDT [facility]ment [facility] [address] [phone] documented as of this encounter Procedures Procedure Name Priority Date/Time Associated Diagnosis Comments POC PROTIME INR BLOOD Routine 08/21/2024 H/O mechanical aortic valve replacement Hx of mitral valve replacement with mechanical valve documented in this encounter Results * POC Protime INR Blood (08/21/2024) Lot Number INR POC 2.8 Prothrombin Time POC Exp Date Blood 08/21/2024 Soto You MD POINT OF CARE TEST ENTER/EDIT OR DERABLES Final Result documented in this encounter Visit Diagnoses Diagnosis H/O mechanical aortic valve replacement- Primary Hx of mitral valve replacement with mechanical valve documented in this encounter Care Teams Certifed Refrigeration Operator Relationship Specialty Start Date End Date Soto You MD [address] [place] [address] PCP - General Internal Medicine 04/29/16 documented as of this encounter
--- OUTSIDE RECORDS SUMMARY | 2024-08-24 10:57 | XMS_ITS | Patient Health Record ---
Author Organization [facility] Address [address] [place] [address] Care Team Providers Care Computing Machine Operator Name Role Phone Kenyatta FREIRE, [facility] Primary Care Provider Andrew Starks Jr Allergies Allergen (clinical drug ingredient) Drug/Non Drug Allergy documented on EMR Reaction Allergy Type Onset Date Status ciprofloxacin Cipro Unknown Drug Allergy Act lucinda amiodarone Amiodarone HCl Unknown Drug Allergy A ctive Reason For Referral No Information Medications Medication SIG (Take, Route, Frequency, Duration) Notes Start Date End Date Status Pantoprazole Sodium 40 MG TAKE 1 TABLET BY MOUTH ONCE DAILY Oral for 90 Active Clopidogrel Bisulfate 75 MG Oral for 90 Active Lasix 20mg Active Atorvastatin Calcium 80 MG TAKE 1 TABLET BY MOUTH ONCE DAILY Oral for 90 Active Warfarin Sodium 2.5mg Active Levothyroxine Sodium 0.137mg Active Entresto 49-51 MG Oral for 90 Active Nitroglycerin 0.4 MG Sublingual for 7 Active rOPINIRole HCl 1 MG Oral for 30 Active Spironolactone 25 MG Oral for 90 Active MiraLax (colon prep) 17 GM/SCOOP mixed with Gatorade or Crystal Light Orally begin at 5:00 p.m. the day before the procedure for 1 day 01/07/2023 Active Metoprolol Succinate ER 100 MG TAKE 1 TABLET BY MOUTH TWICE DAILY Oral for 90 Active Problems Problem Type SNOMED Code ICD Code Onset Dates Problem Status W/U Status Risk Notes Problem 225892642 Colon cancer screening (Z12.11) Active confirmed Problem 380803864 custodial (current) use of anticoagulants (Z79.01) Active confirmed Problem 348283841 Encounter for other preprocedural examination (Z01.818) Active confirmed Problem 686274732 Family history o f colon cancer (Z80.0) Active confirmed Problem 36428240688002888 custodial curr ent use of diuretic (Z79.899) Active confirmed Plan Of Treatment Future Test Test Name Order Date COLONOSCOPY 04/27/2013 COLONOSCOPY 01/07/2023 Insurance Providers Payer Name Payer Address Payer Phone Subscriber Number Group Number Insured Name Patient Relationship to Insured Coverage Start Date Coverage End Date [facility] [address] [place] [phone] [id number] DIPTI TRISTAN Self - patient is the insured Medical (General) History Medical History History ICD Code Colonoscopy 09/18, hyperplast ic polyp, five-year followup due to family history of colon cancer mitral valve replacement with [facility] V alve Rheumatic fever as a child hypothyroidism elevated cholesterol Atrial fibrillation heart attacks 03/2015,09/2015 ,08/2018,10/2018,[id number], Cardiology: Dr. Bansal phone # [phone] hypertension TAVR 03/26 CPAP, no sleep apnea Restless leg syndrome Surgical History Surgery Date(Month/Year) appendectomy removal of a left ovary and fallopian tu be uterine ablation for bleeding heart surgery-valve replacement x2- dr. bansal
--- OUTSIDE RECORDS SUMMARY | 2024-08-24 10:57 | XMS_ITS | Encounter Summary ---
Author Organization [employer] [facility] [place] [address] Care Team Providers Care Events Administrative Assistant Name Role Phone Soto You MD Primary Care Provider [phone] Encounter Details Date Type Department Care Team (Latest Contact Info) Description 08/07/2024 8:20 AM EST Anticoagulation - Warfarin Visit Coumadin [address] [phone] H/O mechanical aortic valve replacement (Primary Dx); [...] AM EDT Anticoagulation - Warfarin Visit Coumadin [address] [phone] 12/28/2024 8:30 AM EDT Office Visit Adult Medicine [address] [place] [address] Soto You MD [address], [place] 02/20/2025 8:00 AM EDT Appointment [facility] [address] [phone] documented as of this encounter Procedures Procedure Name Priority Date/Time Associated Diagnosis Comments POC PROTIME INR BLOOD Routine 08/07/2024 H/O mechanical aortic valve replacement Hx of mitral valve replacement with mechanical valve documented in this encounter Results * POC Protime INR Blood (08/07/2024) Lot Number INR POC 2.5 Prothrombin Time POC Exp Date Blood 08/07/2024 Soto You MD POINT OF CARE TEST ENTER/EDIT OR DERABLES Final Result documented in this encounter Visit Diagnoses Diagnosis H/O mechanical aortic valve replacement- Primary Hx of mitral valve replacement with mechanical valve documented in this encounter Care Teams Events Administrative Assistant Relationship Specialty Start Date End Date Soto You MD [address] [place] [id number] PCP - General Internal Medicine 04/29/16 documented as of this encounter
--- OUTSIDE RECORDS SUMMARY | 2024-08-24 10:57 | XMS_ITS | Encounter Summary ---
Author Organization [facility] [place] [address] Care Team Providers Care Casing Inspector Name Role Phone Soto You MD Primary Care Provider [phone] Encounter Details Date Type Department Care Team (Latest Contact Info) Description 07/31/2024 8:30 AM EST Anticoagulation - Warfarin Visit Coumadin [address] [phone] H/O mechanical aortic valve replacement (Primary Dx); [...] AM EDT Anticoagulation - Warfarin Visit Coumadin [address] [phone] 12/28/2024 8:30 AM EDT Office Visit Adult Medicine [address] [place] [phone] Soto You MD [address] [place], [place] 02/20/2025 8:00 AM EDT Appointment [facility] at [address] [phone] documented as of this encounter Procedures Procedure Name Priority Date/Time Associated Diagnosis Comments POC PROTIME INR BLOOD Routine 07/31/2024 H/O mechanical aortic valve replacement Hx of mitral valve replacement with mechanical valve documented in this encounter Results * POC Protime INR Blood (07/31/2024) Lot Number INR POC 3.7 Prothrombin Time POC Exp Date Blood 07/31/2024 Soto You MD POINT OF CARE TEST ENTER/EDIT OR DERABLES Final Result documented in this encounter Visit Diagnoses Diagnosis H/O mechanical aortic valve replacement- Primary Hx of mitral valve replacement with mechanical valve documented in this encounter Care Teams Casing Inspector Relationship Specialty Start Date End Date Soto You MD [address] [place] [id number] PCP - General Internal Medicine 04/29/16 documented as of this encounter
--- OUTSIDE RECORDS SUMMARY | 2024-08-24 10:57 | XMS_ITS | Clinical Summary ---
Author Organization [facility] Address [address] [place] [address] Care Team Providers Care Software Client Architect Name Role Phone Soto You MD Primary Care Provider [phone] Allergies Active Allergy Reactions Criticality Noted Date Comments Amiodarone Numbness 11/25/2016 Ciprofloxacin 08/03/2005 Medications pantoprazole (PROTONIX) 40 mg EC tablet TAKE 1 TABLET BY MOUTH EVERY DAY 90 tablet 06/20/19 25 Active atorvastatin (LIPITOR) 80 mg tablet TAKE 1 TABLET BY MOUTH EVERY DAY 90 tablet 06/20/19 25 Active albuterol HFA (PROAIR HFA ; PROVENTIL HFA ; VENTOLIN HFA) 90 mcg/actuation inhaler INHALE 2 PUFFS BY MOUTH EVERY 6 HOURS NEEDED FOR COUGH/WHEEZE 6.7 each 06/20/19 25 Active metoprolol succinate (TOPROL-XL) 100 mg 24 hr tablet Take 1 tablet (100 mg total) by mouth 2 (two) times a day. for 90 days Active warfarin (COUMADIN) 2.5 mg tablet Take 1-2 tablets (2.5-5 mg total) by mouth. 02/22/20 24 025 Active rOPINIRole (REQUIP) 0.25 mg tablet TAKE 1 TO 4 TABLETS BY MOUTH 1 TO 3 HOURS AT BEDTIME Active fluticasone propionate (FLONASE) 50 mcg/actuation nasal spray Administer 2 sprays into affected nostril(s). 07/16/19 23 Active clopidogreL (PLAVIX) 75 mg tablet Take 1 tablet (75 mg total) by mouth 1 (one) time each day. for 90 days Active Entresto 49-51 mg per tablet Take 1 tablet by mouth 2 (two) times a day. Active furosemide (LASIX) 20 mg tablet TAKE 2 TABLETS IN THE MORNING AND 1 TABLET IN AFTERNOON Active LORazepam (ATIVAN) 0.5 mg tablet TAKE 1/2 TABLET BY MOUTH DAILY NEEDED FOR ANXIETY 02/03/20 24 Active dapagliflozin propanediol (FARXIGA) 10 mg tablet Take 1 tablet (10 mg total) by mouth 1 (one) time each day. Active nitroglycerin (NITROSTAT) 0.[address] 1 tablet (0.4 mg total) under the tongue every 5 (five) minutes if needed for chest pain. Active ropinirole HCl (ROPINIROLE ORAL) Take 6 mg by mouth at bedtime. Active ferrous sulfate 325 mg (65 mg iron) EC tablet Take 1 tablet (325 mg total) by mouth 1 (one) time each day with breakfast. Do not crush, chew, or split. 30 each 2 07/06/19 25 025 Active vitamin C tablet Take 1 tablet (100 mg total) by mouth 1 (one) time each day. 30 tablet 2 07/06/19 25 025 Active cyanocobalamin (VITAMIN B-12) 1,000 mcg tablet Take 1 tablet (1,000 mcg total) by mouth 1 (one) time each day. 30 tablet 2 07/06/19 25 Active spironolactone (ALDACTONE) 25 mg tablet TAKE 1 TABLET BY MOUTH EVERY DAY 90 tablet 1 07/31/19 25 Active levothyroxine (SYNTHROID, LEVOTHROID) 150 mcg tablet TAKE 1 TABLET BY MOUTH EVERY DAY 90 tablet 1 07/31/19 25 Active levothyroxine (SYNTHROID, LEVOTHROID) 150 mcg tablet Take 1 tablet (150 mcg total) by mouth 1 (one) time each day. 025 Discontinued spironolactone (ALDACTONE) 25 mg tablet Take 1 tablet (25 mg total) by mouth 1 (one) time each day. 025 Discontinued triamcinolone (KENALOG) 0.1 % cream Apply to affected area 1-2 times daily as needed. 15 g 06/22/19 25 025 Active Problems Problem Noted Date Diagnosed Date H/O mechanical aortic valve replacement 04/18/20 24 Hx of mitral valve replacement with mechanical v alve 04/18/2024 COVID-19 virus infection 05/22/2020 Adjustment disorder with anxious mood 12/20/2018 Depression 04/21/2011 Sleep apnea 01/27/2011 Assessment & Plan (06/22/2024 9:30 AM EST): Because she can't tolerate the CPAP this is untreated. I encouraged her to retry and follow up with her specialist in regards to options. Renal cyst 10/12/2008 Overview (04/24/2024): CT 09/13, some calcification A-fib 05/10/2007 Assessment & Plan (06/22/2024 9:30 AM EST): Anticoagulated. Follows with coumadin clinic. Continues on metoprolol as well. Orders: Complete blood count; Future Comprehensive metabolic panel; Future Ferritin; Future Iron and TIBC; Future Thyroid stimulating hormone; Future Vitamin B12; Future Encounters Date Type Department Care Team Description 08/21/2024 8:30 AM EDT Anticoagulation - Warfarin Visit [facility] [address] [phone] H/O mechanical aortic valve replacement (Primary Dx); Hx of mitral valve replacement with mechanical valve 08/18/2024 8:10 AM EDT - 08/18/2024 11:59 PM EDT [facility] [address] [phone] Abnormality of left breast on screening mammogram Discharge Disposition: Home or Self Care 08/14/2024 8:20 AM EDT Anticoagulation - Warfarin Visit [facility] [address] [phone] H/O mechanical aortic valve replacement (Primary Dx); Hx of mitral valve replacement with mechanical valve 08/07/2024 8:20 AM EST Anticoagulation - Warfarin Visit [address] [phone] H/O mechanical aortic valve replacement (Primary Dx); Hx of mitral valve replacement with mechanical valve 07/31/2024 8:30 AM EST Anticoagulation - Warfarin Visit [address] [phone] H/O mechanical aortic valve replacement (Primary Dx); Hx of mitral valve replacement with mechanical valve 07/17/2024 8:30 AM EST Anticoagulation - Warfarin Visit [address] [phone] H/O mechanical aortic valve replacement (Primary Dx); Hx of mitral valve replacement with mechanical valve 07/06/2024 8:40 AM EST Anticoagulation - Warfarin Visit [address] [phone] H/O mechanical aortic valve replacement (Primary Dx); Hx of mitral valve replacement with mechanical valve 06/29/2024 8:30 AM EST Anticoagulation - Warfarin Visit [address] [phone] H/O mechanical aortic valve replacement (Primary Dx); Hx of mitral valve replacement with mechanical valve 06/22/2024 9:00 AM EST Office Visit Adult Medicine [address] [phone] Pepe Bolanos PA RLS (restless legs syndrome) (Primary Dx); Chronic atrial fibrillation (CMS/HCC); Sleep apnea, unspecified type; At risk for decreased bone density; Irritant contact dermatitis, unspecified trigger 06/22/2024 8:30 AM EST Anticoagulation - Warfarin Visit [address] [phone] H/O mechanical aortic valve replacement (Primary Dx); Hx of mitral valve replacement with mechanical valve 06/12/2024 8:00 AM EST [facility] [address] [phone] H/O mechanical aortic valve replacement (Primary Dx); Hx of mitral valve replacement with mechanical valve 06/05/2024 8:30 AM EST Anticoagulation - Warfarin Visit [address] [phone] H/O mechanical aortic valve replacement (Primary Dx); Hx of mitral valve replacement with mechanical valve 05/29/2024 9:00 AM EST Anticoagulation - Warfarin Visit [address] [phone] H/O mechanical aortic valve replacement (Primary Dx); Hx of mitral valve replacement with mechanical valve from Last 3 Months Immunizations Name Administration Dates Next Due H1N1 Inj Preservative Free 04/26/2009 Influenza trivalent, with pr eservative (Fluzone; Afluria) 6mo and older 04/21/2011 Influenza, Unspecified 03/22/2015,03/18/2014 Surgical History Surgery Date Site/Laterality Comments CARDIAC SURGERY PROCEDURE: HISTORICAL HEART SURGERY(ASD,VSD,VALVES); COMMENT: mitral valve replacement COLONOSCOPY 2004 PROCEDURE: HISTORICAL COLONOSCOPY; COMMENT: Dr Hernandez; reported by patient as normal CARDIAC CATHETERIZATION 04/14/16 PROCEDURE: HISTORICAL CARDIAC CATH; COMMENT: JAVON to RCA, normal LVEF Medical History Medical History Date Comments Historical Medical DX 05/10/2007 DX:A fib Heart valve replaced by other means 08/03/2005 DX:Heart valve replaced by other means; COMMENT: [facility]. Irritable bowel syndrome 08/03/2005 DX:Irri table bowel syndrome Pure hypercholesterolemia 08/03/2005 DX:Pur e hypercholesterolemia; COMMENT: Pt declined statin treatment due to muscle pain Unspecified hypothyroidism 08/03/2005 DX:Un specified hypothyroidism Historical Medical DX 10/12/2008 DX:Kidney cyst; COMMENT: CT 09/13, some calcification Family history of colon cancer D X:Family history of colon cancer HTN (hypertension) 05/16/2010 DX:HTN (hyper tension) NSTEMI (non-ST elevated myoc ardial infarction) (CMS/HCC) DX:NSTEMI (non-ST elevated myocardial infarction) (HCC) Family History Medical History Relation Name Comments No Known Problems Daughter No Known Problems Father No Known Problems Maternal Grandfather No Known Problems Maternal Grandmother Cataracts Mother Colon cancer Mother age 65 No Known Problems Other No Known Problems Paternal Grandfather No Known Problems Paternal Grandmother No Known Problems Sister Blindness Neg Hx Breast cancer Neg Hx Glaucoma Neg Hx Macular degeneration Neg Hx Strabismus Neg Hx Relation Name Status Comments Daughter Father Maternal Grandfather Maternal Grandmother Mother Other Paternal Grandfather Paternal Grandmother Sister Social History Tobacco Use Types Packs/Day Years [...] AM EST Sexual Orientation Not on file Obstetrics History Para Term AB IAB SAB Ectopic Multiple Livin g Live Births 2 Last Filed Vital Signs Vital Sign Reading Time Taken Comments Blood Pressure 102/60 06/22/2024 8:27 AM EST Pulse 78 06/22/2024 8:27 AM EST Temperature 36.6 ??C (97.9 ??F) 06/22/2024 8:27 AM ES T Respiratory Rate 16 06/22/2024 8:27 AM EST Oxygen Saturation 97% 06/22/2024 8:27 AM EST Inhaled Oxygen Concentration - - Weight 90.3 kg (199 lb) 08/18/2024 8:27 AM EDT Height 160 cm (5' 3 ) 08/18/2024 8:27 AM EDT Body Mass Index 35.25 08/18/2024 8:27 AM EDT Plan of Treatment Upcoming Encounters Date Type Department Care Team (Late st Contact Info) Description 09/04/2024 8:30 AM EDT Anticoagulation - Warfarin Visit Coumadin [address] [phone] 12/28/2024 8:30 AM EDT Office Visit Adult Medicine [address] [phone] Soto You MD [address] [place] [address] 02/20/2025 8:00 AM EDT [facility]oint[facility] [address] [phone] Health Maintenance Due Date Last Done Comments DTaP,Tdap,and Td Vaccines (1 - Tdap) 12/28/1975 Pneumococcal Vaccine: 50+ Years (1 of 2 - PCV) 12/28/1975 Zoster Vaccines (1 of 2) 2006 RSV Immunization Patients 60+ Years Old (1 - Risk 60-74 years 1-dose series) 2016 Colorectal Cancer Screening: Colonoscopy 04/22/2020 Depression Screening 04/22/2020 Hepatitis C Screening 04/22/2020 Medicare Annual Wellness Visit 04/22/2020 Osteoporosis Screening (Bone Density Screening) 04/22/2020 Social Influencers of Health Screening 04/22/2020 Falls Risk Assessment 2021 COVID-19 Vaccine ( season) 2024 08/10/2020, 07/20/2020 Influenza Vaccine (#1) 2024 5, 03/18/2014, 04/21/2011, Additional history exists Hypertension/CHF/CAD Annual BMP Blood Test 07/06/2025 07/06/2024, 12/15/2023, 12/15/2023 Breast Cancer Screening 08/18/2026 08/19/19 25, 02/14/2024, 02/14/2024, Additional history exists Cholesterol Screening (Lipid Panel) 12/14/2028 12/15/2023, 12/15/2023 HIB Vaccines Aged Out No longer eligi ble based on patient's age to complete this topic HPV Vaccines Aged Out No longer eligi ble based on patient's age to complete this topic Hepatitis A Vaccines Aged Out No long er eligible based on patient's age to complete this topic Hepatitis B Vaccines Aged Out No long er eligible based on patient's age to complete this topic IPV Vaccines Aged Out No longer eligi ble based on patient's age to complete this topic MMR Vaccines Aged Out No longer eligi ble based on patient's age to complete this topic Meningococcal ACWY Vaccine Aged Out N o longer eligible based on patient's age to complete this topic Meningococcal B Vacine Aged Out No lo nger eligible based on patient's age to complete this topic RSV Immunization Patients Under 20 months Aged Out No longer eligible based on patient's age to complete this topic Varicella Vaccines Aged Out No longer eligible based on patient's age to complete this topic Procedures Procedure Name Priority Date/Time Associated Diagnosis Comments POC PROTIME INR BLOOD Routine 08/21/2024 H/O mechanical aortic valve replacement Hx of mitral valve replacement with mechanical valve MG MAMMO DIGITAL DIAGNOSTIC LEFT Routine 08/18/2024 10:34 AM EDT Abnormality of left breast on screening mammogram POC PROTIME INR BLOOD Routine 08/14/2024 H/O mechanical aortic valve replacement Hx of mitral valve replacement with mechanical valve POC PROTIME INR BLOOD Routine 08/07/2024 H/O mechanical aortic valve replacement Hx of mitral valve replacement with mechanical valve POC PROTIME INR BLOOD Routine 07/31/2024 H/O mechanical aortic valve replacement Hx of mitral valve replacement with mechanical valve POC PROTIME INR BLOOD Routine 07/17/2024 H/O mechanical aortic valve replacement Hx of mitral valve replacement with mechanical valve COMPREHENSIVE METABOLIC PANEL Routine 07/06/2024 9:13 AM EST RLS (restless legs syndrome) Chronic atrial fibrillation (CMS/HCC) FERRITIN Routine 07/06/2024 9:13 AM EST RLS (restless legs syndrome) Chronic atrial fibrillation (CMS/HCC) IRON AND TIBC Routine 07/06/2024 9:13 AM EST RLS (restless legs syndrome) Chronic atrial fibrillation (CMS/HCC) THYROID STIMULATING HORMONE Routine 07/06/2024 9:13 AM EST RLS (restless legs syndrome) Chronic atrial fibrillation (CMS/HCC) MAGNESIUM Routine 07/06/2024 9:13 AM EST Coronary atherosclerosis of [place] coronary artery B-TYPE NATRIURETIC PEPTIDE Routine 07/06/2024 9:13 AM EST Coronary atherosclerosis of [place] coronary artery COMPLETE BLOOD COUNT Routine 07/06/2024 9:13 AM EST RLS (restless legs syndrome) Chronic atrial fibrillation (CMS/HCC) VITAMIN B12 Routine 07/06/2024 9:13 AM EST RLS (restless legs syndrome) Chronic atrial fibrillation (CMS/HCC) POC PROTIME INR BLOOD Routine 07/06/2024 H/O mechanical aortic valve replacement Hx of mitral valve replacement with mechanical valve POC PROTIME INR BLOOD Routine 06/29/2024 H/O mechanical aortic valve replacement Hx of mitral valve replacement with mechanical valve POC PROTIME INR BLOOD Routine 06/22/2024 H/O mechanical aortic valve replacement Hx of mitral valve replacement with mechanical valve POC PROTIME INR BLOOD Routine 06/12/2024 H/O mechanical aortic valve replacement Hx of mitral valve replacement with mechanical valve POC PROTIME INR BLOOD Routine 06/05/2024 H/O mechanical aortic valve replacement Hx of mitral valve replacement with mechanical valve POC PROTIME INR BLOOD Routine 05/29/2024 H/O mechanical aortic valve replacement Hx of mitral valve replacement with mechanical valve LIPID PANEL Routine 12/15/2023 from Last 3 Months or Most Recently Relevant to Health Maintenance Results * POC Protime INR Blood (08/21/2024) Only the most recent of11 resultswithin the time period is included. Lot Number INR POC 2.8 Prothrombin Time POC Exp Date Blood 08/21/2024 Soto You MD POINT OF CARE TEST ENTER/EDIT OR DERABLES Final Result * MG Mammo Digital Diagnostic Left (08/18/2024 [...] bilateral breasts in 6 months. Mammo Location: [facility], [address] [place] [address] -------- FINAL REPORT -------- Dictated By: Cuauhtemoc Storey Dictated Date: 08/18/2024 09:11 ET Assigned Physician: Cuauhtemoc Storey Reviewed and Electronically Signed By: Cuauhtemoc Storey Signed Date: 08/18/2024 09:20 ET Workstation ID: [id number] Transcribed By: Self Edit Transcribed Date: 08/18/2024 [...] is performed. ??Computer aided detection utilizing the Mailbox system was utilized. FINDINGS: Again seen is [...] projections is performed. Computer aided detectionutilizing the Mailbox system was utilized. FINDINGS: Again seen is [...] bilateral breasts in 6 months. Mammo Location: [facility], [facility], [address] [place] [address] -------- FINAL REPORT -------- Dictated By: Cuauhtemoc Storey Dictated Date: 08/18/2024 09:11 ET Assigned Physician: Cuauhtemoc Storey Reviewed and Electronically Signed By: Cuauhtemoc Storey Signed Date: 08/18/2024 09:20 ET Workstation ID: [id number] Transcribed By: Self Edit Transcribed Date: 08/18/2024 09:11 ET us Soto You MD IMG BI PROCEDURES Final Result * (ABNORMAL) Iron and TIBC (07/06/2024 9:13 AM EST) Iron 29(L) 40 - 150 mcg/dL LAB CHEMISTRY METHOD 07/06/2024 12:29 PM [facility] TIBC 490(H) 250 - 450 mcg/dL LAB CHEMISTRY METHOD 07/06/2024 12:29 PM [facility] Iron Saturation 6(L) 15 - 50 % LAB CHEMISTRY METHOD 07/06/2024 12:29 PM [facility] Blood Venous blood specimen / Unknown Venipuncture / Unknown 07/06/2024 9:13 AM EST 07/06/2024 9:13 AM EST us Pepe WAKEFIELD LAB BLOOD ORDERABLES Fin al Result Performing Organization Address City/State/[facility] Co de Phone Number [facility] [address] [place] [address], * (ABNORMAL) Complete blood count (07/06/2024 9:13 AM EST) [facility] WBC 7.0 4.8 - 10.8 K/mcL LAB HEMETOLOGY METHOD 07/06/2024 10:29 AM [facility] RBC 4.90(H) 3.80 - 4.80 M/[facility] LAB HEMETOLOGY METHOD 07/06/2024 10:29 AM [facility] Hemoglobin 10.9(L) 11.5 - 16.0 g/dL LAB HEMETOLOGY METHOD 07/06/2024 10:29 AM [facility] Hematocrit 37.9 35.0 - 47.0 % LAB HEMETOLOGY METHOD 07/06/2024 10:29 AM [facility] MCV 77.3(L) 79.0 - 98.0 FL LAB HEMETOLOGY METHOD 07/06/2024 10:29 AM [facility] MCH 22.2(L) 27.0 - 32.0 pcg LAB HEMETOLOGY METHOD 07/06/2024 10:29 AM EST [facility] MCHC 28.8(L) 32.0 - 37.0 g/dL LAB HEMETOLOGY METHOD 07/06/2024 10:29 AM [facility] RDW 18.4(H) 11.0 - 15.0 % LAB HEMETOLOGY METHOD 07/06/2024 10:29 AM [facility] Platelets 374 130 - 400 K/mcL LAB HEMETOLOGY METHOD 07/06/2024 10:29 AM [facility] MPV 9.4 7.0 - 11.0 FL LAB HEMETOLOGY METHOD 07/06/2024 10:29 AM [facility] NRBC 0.0 <1.0 % LAB HEMETOLOGY METHOD 07/06/2024 10:29 AM [facility] NRBC Absolute 0.00 <0.10 K/mcL LAB HEMETOLOGY METHOD 07/06/2024 10:29 AM [facility] Blood Venous blood specimen / Unknown Venipuncture / Unknown 07/06/2024 9:13 AM EST 07/06/2024 9:13 AM EST [facility] LAB BLOOD ORDERABLES Fin al Result [facility] [address] [place] [address], * Thyroid stimulating hormone (07/06/2024 9:13 AM EST) TSH 1.69 0.40 - 4.00 mcIU/mL LAB CHEMISTRY METHOD 07/06/2024 12:37 PM EST [facility] Blood Venous blood specimen / Unknown Venipuncture / Unknown 07/06/2024 9:13 AM EST 07/06/2024 9:13 AM EST [facility] LAB BLOOD ORDERABLES Fin al Result Performing Organization Address [facility]/ZIP Co de Phone Number [facility] [address] [place] [address], [place] [phone] * B-type natriuretic peptide (07/06/2024 9:13 AM EST) [facility] BNP 91 <=100 pcg/mL LAB CHEMISTRY METHOD 07/06/2024 11:05 AM EST [facility] Blood Venous blood specimen / Unknown Venipuncture / Unknown 07/06/2024 9:13 AM EST 07/06/2024 9:13 AM EST Maged Begum MD LAB BLOOD ORDERABLES Final Result Performing Organization Address [facility]/ZIP Co de Phone Number [facility] [address] [place] [address], [place] [phone] * Magnesium (07/06/2024 9:13 AM EST) [facility] Magnesium 2.5 1.9 - 2.6 mg/dL LAB CHEMISTRY METHOD 07/06/2024 12:29 PM EST [facility] Blood Venous blood specimen / Unknown Venipuncture / Unknown 07/06/2024 9:13 AM EST 07/06/2024 9:13 AM EST us Maged Begum MD LAB BLOOD ORDERABLES Final Result Performing Organization Address City/[facility]/ZIP Co de Phone Number [facility] [address] [place] [address], [place] [phone] * (ABNORMAL) Ferritin (07/06/2024 9:13 AM EST) [facility] Ferritin 5(L) 8 - 252 ng/mL LAB CHEMISTRY METHOD 07/06/2024 1:21 PM EST [facility] Blood Venous blood specimen / Unknown Venipuncture / Unknown 07/06/2024 9:13 AM EST 07/06/2024 9:13 AM EST Pe[facility] WA[facility] LAB BLOOD ORDERABLES Fin al Result [facility] [address] [place] [address], [place] [phone] * (ABNORMAL) Vitamin B12 (07/06/2024 9:13 AM EST) [facility] Vitamin B-12 222(L) 250 - 900 pcg/mL LAB CHEMISTRY METHOD 07/06/2024 12:52 PM [facility] Blood Venous blood specimen / Unknown Venipuncture / Unknown 07/06/2024 9:13 AM EST 07/06/2024 9:13 AM EST Pe[facility] LAB BLOOD ORDERABLES Fin al Result [facility] [address] [place] [address], [place] [phone] * (ABNORMAL) Comprehensive metabolic panel (07/06/2024 9:13 AM EST) [facility] Sodium 140 133 - 145 mmol/L LAB CHEMISTRY METHOD 07/06/2024 12:52 PM [facility] Potassium 3.6 3.5 - 5.5 mmol/L LAB CHEMISTRY METHOD 07/06/2024 12:52 PM [facility] Chloride 106 96 - 110 mmol/L LAB CHEMISTRY METHOD 07/06/2024 12:52 PM [facility] CO2 25 21 - 32 mmol/L LAB CHEMISTRY METHOD 07/06/2024 12:52 PM [facility] Anion Gap 9 3 - 11 LAB CHEMISTRY METHOD 07/06/2024 12:52 PM [facility] Glucose 102(H) 70 - 100 mg/dL LAB CHEMISTRY METHOD 07/06/2024 12:52 PM [facility] BUN 18 5 - 25 mg/dL LAB CHEMISTRY METHOD 07/06/2024 12:52 PM [facility] Creatinine 0.93 0.50 - 1.10 mg/dL LAB CHEMISTRY METHOD 07/06/2024 12:52 PM [facility] eGFR 68 >=60 mL/min/1. 73m2 LAB CHEMISTRY METHOD 07/06/2024 12:52 PM [facility] Comment:Calculation based on the??Chronic Kidney Disease Epidemiology Collaboration (CKD-EPI) equation refit??without adjustment for race. BUN/Creatinine Ratio 19.4 LAB CHEMISTRY METHOD 07/06/2024 12:52 PM [facility] Calcium 9.3 8.5 - 10.5 mg/dL LAB CHEMISTRY METHOD 07/06/2024 12:52 PM [facility] AST (SGOT) 29 10 - 42 unit/L LAB CHEMISTRY METHOD 07/06/2024 12:52 PM [facility] ALT (SGPT) 42 10 - 60 unit/L LAB CHEMISTRY METHOD 07/06/2024 12:52 PM [facility] Alkaline Phosphatase 135(H) 42 - 121 unit/L LAB CHEMISTRY METHOD 07/06/2024 12:52 PM [facility] Total Protein 7.5 6.0 - 8.0 g/dL LAB CHEMISTRY METHOD 07/06/2024 12:52 PM [facility] Albumin 4.2 3.2 - 5.0 g/dL LAB CHEMISTRY METHOD 07/06/2024 12:52 PM [facility] Total Bilirubin 0.6 0.0 - 1.4 mg/dL LAB CHEMISTRY METHOD 07/06/2024 12:52 PM [facility] Blood Venous blood specimen / Unknown Venipuncture / Unknown 07/06/2024 9:13 AM EST 07/06/2024 9:13 AM EST us Pepe WAKEFIELD LAB BLOOD ORDERABLES Fin al Result [facility] [address] [place] [address], [place] [phone] * (ABNORMAL) Lipid panel (12/15/2023) LDL/HDL Ratio 4 0 - 4 Triglycerides 121 0 - 150 mg/dL Cholesterol 181 0 - 200 mg/dL HDL 47 >=40 mg/dL LDL Cholesterol 110(A) 0 - 100 mg/dL Blood Venous blood specimen / Unknown Historical Provider LAB BLOOD ORDERABLES Cynthia l Result from Last 3 Months or Most Recently Relevant to Health Maintenance Insurance [employer] Care Teams Software Client Architect Relationship Specialty Start Date End Date Soto You MD [address] [place] [id number] PCP - General Internal Medicine 04/29/16
== END 2024-08-24 11:04 | disposition home or self-care (01) ==
LOC: HO.HSMS 09:48
PROVIDERS: PCP Internal Medicine; Visit Provider Physician Assistant Medical
DX: G25.81 Restless legs syndrome (principal); G47.33 Obstructive sleep apnea (adult) (pediatric); R53.83 Other fatigue; G47.9 Sleep disorder, unspecified; I48.91 Unspecified atrial fibrillation
CPT/HCPCS: 99214

== ENCOUNTER → 2024-08-24 09:48 | Outpatient (BNVA) | payer MEDICARE, SELFPAY | PROVIDERS: PCP Internal Medicine; Visit Provider Physician Assistant Medical | DX: G47.33 Obstructive sleep apnea (adult) (pediatric) (principal); G25.81 Restless legs syndrome; R53.83 Other fatigue; I48.91 Unspecified atrial fibrillation; E66.01 Morbid (severe) obesity due to excess calories; Z68.35 Body mass index [BMI] 35.0-35.9, adult | CPT/HCPCS: 99212 ==

== ENCOUNTER 2025-01-18 08:42 | Outpatient (AMB) | payer MEDICARE, MEDICAID, SELFPAY ==
--- NOTE | 2025-01-18 08:53 | MHC.OFFVIS ---
Vital Signs 01/18/25 08:54 Height 5 ft 3 in Weight 201 lb 4 oz BMI 35.6 BP 108/68 Blood Pressure Location Rt brachial Position Sitting Pulse 71 Pulse Source Pulse Oximeter Pulse Oximetry (%) 96 Oxygen Delivery Method Room Air Intake Visit Reasons: 3m Follow up Intake Note: Patient presents follow up RLS/ELDER medication. No-showed HST 10/26. Patient states RLS controlled with medication. if misses taking it bad. Allergies amiodarone Allergy (Unknown, Verified 01/18/25 08:56) Itching ciprofloxacin (Cipro) Allergy (Unknown, Verified 01/18/25 08:56) Facial Swelling HPI Comments Details: 68y/o female comes for follow up for RLS and Sleep apnea. She missed the appt for her psg, due to 's shoulder surgery, will send her for a HST. She had a TIA in Jun 2022 with [facility], and complete work up at [facility]. She had L. visual field vision loss and L. sided facial neuropathy which resolved. She sees a retina specialist and now takes Pataday OTC as needed, vision has significantly improved, wears glasses for reading and driving. She had a Mitral valve replacement with [facility] Epic valve and / Aortic Valve stent replacement. She has difficulty falling asleep at night, sits in the recliner and does crafts until 2am. She has RLS symptoms and takes requip XR 6mg qhs to help with sleep at night as her symptoms are worse at night, with numbness, uncomfortable tingling sensation, she can not stop moving her legs, walks around and stands up. Her legs still bother her. She c/o of swelling in her legs, forgets to put on her compression stockings and edema on 2 diuretics. Her memory, and mood are good most days well managed with Lorazepam 0.5mg as needed for anxiety. Diet is poor, eats junk food at night time. 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 Hyperlipidemia HTN (hypertension) GERD (gastroesophageal reflux disease) Heart disease Atrial fibrillation Surgical History H/O colonoscopy History of appendectomy H/O hysterectomy for benign disease Aortic valve replaced Mitral valve replaced Social History Alcohol intake: never Patient Tobacco Use Status: Never used Tobacco Physical Exam Vital Signs: Last Vital Signs Pulse 71 01/18/25 08:54 BP 108/68 01/18/25 08:54 Pulse Ox 96 01/18/25 08:54 Oxygen Delivery Method Room Air 01/18/25 08:54 BMI result Body Mass Index 35.6 Const General: cooperative, comfortable and no acute distress Orientation/consciousness: patient oriented x3 HEENT Face and sinus: Yes other (mild facial asymmety noted on smile.) Teeth and gingiva: other ([place] score is 4) Eyes Pupils: Equal, round and reactive pupils present Neck Neck: Yes other (Limited ROM to the R. Trapezius and Scalenes tight) Resp Effort & Inspection: normal respiratory effort and able to speak in complete sentences Neuro General: patient oriented x3 and moves all extremities Cranial nerves: Yes Facial sensation intact/muscles of mastication intact, Yes Equal, round and reactive pupils present, Yes Normal accommodation reflex present, Yes Nystagmus not present, Yes Normal facial strength present, Yes Midline tongue present, Yes Ability to bilaterally rotate head present (Limited ROM to the R) and Yes Ability to bilaterally elevate shoulders present Cognition (Neuro): normal cognition Gait exam (Neuro): Normal gait present Motor exam (neuro): 5/5 motor strength present throughout and Tremors during motor activity present (LUE hand tremor mild ) Psych Appearance: grossly normal Mental Status: mental status grossly normal Thought process: Normal thought process present Thought content: Normal thought content present Results Reviewed Results Reviewed: Labs reviewed on her cell phone and CBC/ CMP Glucose elevated, GFR 37, BUN is elevated. Requested labs from [facility]. Assessment & Plan Assessment & Plan (1) Obstructive sleep apnea: Comment: PSG - no show- HST submitted today. 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 RLS will continue her on Ropinorole XR 6mg qhs, will take one additional pill if needed for worsening symptoms as needed due to sleep difficulties. Labs reviewed with patient continue magnesium 400mg PO at bedtime continue B6 for nerve pain 100mg PO at bedtime pitting edema f/u with pcp, elevate your feet, use compression stockings daily 2-4 hours at a minimum. Orders: Orders RT home sleep study 01/18/25 G47.19 - Other hypersomnia Medications: New ramelteon (Rozerem) 8 mg PO BEDTIME 90 tabs 3RF insomnia 3 months MDD 8mg G47.00 - Insomnia, unspecified Patient Instructions: Sleep Hygiene provided: set a scheduled bedtime and wake time to help regulate the circadian rhythm and balance the release of pituitary hormones. Sleep in a dark room, temperatures below 68 degrees, and no devices n bed. Limit caffeinated products 6 hours prior to bed, and limit fluids 2-4 hours prior to bed. Gentle night yoga, diffusing essential oils, and playing soft music can be relaxing. Coding Level of Care Code Est Pt Level 4 (57244) Diagnoses Obstructive sleep apnea G47.33 Restless legs syndrome G25.81 Fatigue due to sleep pattern disturbance R53.83; G47.9 Insomnia disorder related to known organic factor G47.00
[2025-01-18 08:54] VITALS: BP 108/68; PULSE 71; O2SAT 96; BMI 35.6
--- OUTSIDE RECORDS SUMMARY | 2025-01-18 09:05 | XMS_ITS ---
[facility] Organization Unknown Care Team Organization Name Specialty Phone Email Start Date End Da te [facility] 04/14/2022 01/24/2024
--- OUTSIDE RECORDS SUMMARY | 2025-01-18 09:05 | XMS_ITS | Clinical Summary ---
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 for 90 days Active rOPINIRole (REQUIP) 0.25 mg tablet TAKE 1 TO 4 TABLETS BY MOUTH 1 TO 3 HOURS AT BEDTIME Active fluticasone propionate (FLONASE) 50 mcg/actuation nasal spray Administer 2 sprays into affected nostril(s). 3 Active clopidogreL (PLAVIX) 75 mg tablet Take [...] TABLET BY MOUTH DAILY NEEDED FOR ANXIETY 4 Active dapagliflozin propanediol (FARXIGA) 10 mg tablet Take 1 tablet (10 mg total) by mouth 1 (one) time each day. Active nitroglycerin (NITROSTAT) 0.[address] 1 tablet (0.4 mg total) under the tongue every 5 (five) minutes if needed for chest pain. Active ropinirole HCl (ROPINIROLE ORAL) Take 6 mg by mouth at bedtime. Active warfarin (COUMADIN) 2.5 mg tablet TAKE 1 -2 TABS DIRECTED AT SAME TIME DAILY MAY CAUSE HEAVY BLEEDING DO NOT CHANGE DIETARY HABITS 180 tablet 1 5 Active pantoprazole (PROTONIX) 40 mg EC tablet TAKE 1 TABLET BY MOUTH EVERY DAY 90 tablet 1 5 Active atorvastatin (LIPITOR) 80 mg tablet TAKE 1 TABLET BY MOUTH EVERY DAY 90 tablet 1 5 Active ferrous sulfate 325 mg (65 mg elemental iron) tablet TAKE 1 TABLET BY MOUTH ONCE A DAY WITH BREAKFAST, DO NOT CRUSH,CHEW OR SPIT. 90 tablet 5 Active cyanocobalamin (VITAMIN B-12) 1,000 mcg tablet TAKE 1 TABLET (1,000 MCG TOTAL) BY MOUTH ONCE DAILY 90 tablet 5 Active albuterol HFA (PROAIR HFA ; PROVENTIL HFA ; VENTOLIN HFA) 90 mcg/actuation inhaler Inhale 2 puffs by mouth every 6 (six) hours if needed for wheezing. 6.7 each 1 5 Active levothyroxine (SYNTHROID, LEVOTHROID) 150 mcg tablet TAKE 1 TABLET BY MOUTH EVERY DAY 90 tablet 1 5 Active spironolactone (ALDACTONE) 25 mg tablet TAKE 1 TABLET BY MOUTH EVERY DAY 90 tablet 1 5 Active Active Problems Problem Noted Date Diagnosed Date [...] Overview (04/24/2024): CT 09/13, some calcification A-fib (CMS/HCC V24, CMS/HCC V28) 05/10/2007 Assessment & Plan (06/22/2024 9:30 AM EST): Anticoagulated. Follows with coumadin clinic. Continues on metoprolol as well. Orders: Complete blood count; Future Comprehensive metabolic panel; Future Ferritin; Future Iron and TIBC; Future Thyroid stimulating hormone; Future Vitamin B12; Future Encounters Date Type Department Care Team Description 01/11/2025 8:30 AM EDT Anticoagulation - Warfarin Visit [address] [phone] H/O mechanical aortic valve replacement (Primary Dx); Hx of mitral valve replacement with mechanical valve 01/04/2025 8:20 AM EDT Anticoagulation - Warfarin Visit [address] [phone] H/O mechanical aortic valve replacement (Primary Dx); Hx of mitral valve replacement with mechanical valve 12/28/2024 9:00 AM EDT Anticoagulation - Warfarin Visit [address] [phone] H/O mechanical aortic valve replacement (Primary Dx); Hx of mitral valve replacement with mechanical valve 12/28/2024 8:30 AM EDT Office Visit [facility] [address] [phone] Soto You MD Depression, unspecified depression type (Primary Dx); Hx of mitral valve replacement with mechanical valve; Anemia, unspecified type; Renal insufficiency; Atrial fibrillation, unspecified type (CMS/HCC V24, CMS/HCC V28) 12/18/2024 8:40 AM EDT Anticoagulation - Warfarin Visit [address] [phone] H/O mechanical aortic valve replacement (Primary Dx); Hx of mitral valve replacement with mechanical valve 12/04/2024 8:10 AM EDT Anticoagulation - Warfarin [facility] [address] [phone] H/O mechanical aortic valve replacement (Primary Dx); Hx of mitral valve replacement with mechanical valve 11/24/2024 8:20 AM EDT Anticoagulation - [facility]in [facility] [address] [phone] H/O mechanical aortic valve replacement (Primary Dx); Hx of mitral valve replacement with mechanical valve 11/17/2024 8:20 AM EDT Anticoagulation - Warfarin [facility] [address] [phone] H/O mechanical aortic valve replacement (Primary Dx); Hx of mitral valve replacement with mechanical valve 11/17/[address] [phone] Tasha Jack LPN Foot Swelling 11/07/2024 8:20 AM EDT Anticoagulation - Warfarin Visit [facility] [address] [phone] H/O mechanical aortic valve replacement (Primary Dx); Hx of mitral valve replacement with mechanical valve 10/31/2024 8:20 AM EDT Anticoagulation - Warfarin [facility] [address] [phone] H/O mechanical aortic valve replacement (Primary Dx); Hx of mitral valve replacement with mechanical valve 10/23/2024 8:00 AM EDT Anticoagulation - Warfarin [facility] [address] [phone] H/O mechanical aortic valve replacement (Primary Dx); [...] tension) NSTEMI (non-ST elevated myoc ardial infarction) (CMS/HCC V24, CMS/HCC V28) DX:NSTEMI (non- ST elevated myocardial infarction) ([facility]) Family History Medical History Relation Name Comments [...] Sign Reading Time Taken Comments Blood Pressure 116/68 12/28/2024 8:26 AM EDT Pulse 62 12/28/2024 8:26 AM EDT Temperature 36.4 C (97.6 F) 12/28/2024 8:26 AM EDT Respiratory Rate 20 12/28/2024 8:26 AM EDT Oxygen Saturation 97% 06/22/2024 8:27 AM EST Inhaled Oxygen Concentration - - Weight 89.4 kg (197 lb) 12/28/2024 8:26 AM EDT Height 160 cm (5' 3 ) 12/28/2024 8:26 AM EDT Body Mass Index 34.9 12/28/2024 8:26 AM EDT Plan of Treatment Upcoming Encounters Date Type Department Care Team (Late st Contact Info) Description 01/25/2025 8:20 AM EDT Anticoagulation - Warfarin Visit [facility] [place] [address] [place] [address] 01/30/2025 8:45 AM EDT [facility] [address] [place], [place] [phone] Alonso Baldwin NP [address] [place] 02/20/2025 8:00 AM EDT [facility] [address] [phone] Health Maintenance Due Date Last Done Comments DTaP,Tdap,and Td Vaccines (1 - Tdap) 12/28/1975 Pneumococcal Vaccine: 50+ Years (1 of 2 - PCV) 12/28/1975 Zoster Vaccines (1 of 2) 2006 RSV Immunization Adult Patients (1 - Risk 60-74 years 1-dose series) 2016 Colorectal Cancer Screening: Colonoscopy 04/22/2020 Medicare Annual Wellness Visit 04/22/2020 Osteoporosis Screening (Bone Density Screening) 04/22/2020 Social Influencers of Health Screening 04/22/2020 Falls Risk Assessment 2021 COVID-19 Vaccine ( season) 2024 08/10/2020, 07/20/2020 Depression Screening 06/07/2024 Influenza Vaccine (#1) 2025 5, 03/18/2014, 04/21/2011, Additional history exists Hypertension/CHF/CAD Annual BMP Blood Test 01/04/2026 01/04/2025, 12/04/2024, 07/06/2024, Additional history exists Breast Cancer Screening 08/18/2026 08/19/19 25, 02/14/2024, 02/14/2024, Additional history exists Cholesterol Screening (Lipid Panel) 12/14/2028 12/15/2023, 12/15/2023 Hepatitis C Screening Completed 12/16/2013 HIB Vaccines Aged Out No longer eligi [...] age to complete this topic Meningococcal B Vaccine Aged Out No l onger eligible based on patient's age to complete this topic RSV Immunization Patients Under 20 months Aged Out No longer eligible based on patient's age to complete this topic Varicella Vaccines Aged Out No longer eligible based on patient's age to complete this topic Procedures Procedure Name Priority Date/Time Associated Diagnosis Comments POC PROTIME INR BLOOD Routine 01/11/2025 H/O mechanical aortic valve replacement Hx of mitral valve replacement with mechanical valve CBC WITH AUTO DIFFERENTIAL Routine 01/04/2025 8:33 AM EDT Anemia, unspecified type Atrial fibrillation, unspecified type (CMS/HCC V24, CMS/HCC V28) CBC AND DIFFERENTIAL Routine 01/04/2025 8:33 AM EDT Anemia, unspecified type Atrial fibrillation, unspecified type (CMS/HCC V24, CMS/HCC V28) BASIC METABOLIC PANEL Routine 01/04/2025 8:33 AM EDT Renal insufficiency POC PROTIME INR BLOOD Routine 01/04/2025 H/O mechanical aortic valve replacement Hx of mitral valve replacement with mechanical valve POC PROTIME INR BLOOD Routine 12/28/2024 H/O mechanical aortic valve replacement Hx of mitral valve replacement with mechanical valve PROTHROMBIN TIME WITH INR Routine 12/04/2024 8:36 AM EDT H/O mechanical aortic valve replacement 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 BASIC METABOLIC PANEL Routine 12/04/2024 8:36 AM EDT Leg edema CHF (congestive heart failure) (CMS/HCC V24, CMS/HCC V28) B-TYPE NATRIURETIC PEPTIDE Routine 12/04/2024 8:36 AM EDT Leg edema CHF (congestive heart failure) (CMS/HCC V24, CMS/HCC V28) POC PROTIME INR BLOOD Routine 12/04/2024 H/O mechanical aortic valve replacement Hx of mitral valve replacement with mechanical valve POC PROTIME INR BLOOD Routine 11/24/2024 H/O mechanical aortic valve replacement Hx of mitral valve replacement with mechanical valve POC PROTIME INR BLOOD Routine 11/17/2024 H/O mechanical aortic valve replacement Hx of mitral valve replacement with mechanical valve POC PROTIME INR BLOOD Routine 11/07/2024 H/O mechanical aortic valve replacement Hx of mitral valve replacement with mechanical valve POC PROTIME INR BLOOD Routine 10/31/2024 H/O mechanical aortic valve replacement Hx of mitral valve replacement with mechanical valve POC PROTIME INR BLOOD Routine 10/23/2024 H/O mechanical aortic valve replacement Hx of mitral valve replacement with mechanical valve MG MAMMO DIGITAL DIAGNOSTIC LEFT Routine 08/18/2024 10:34 AM EDT Abnormality of left breast on screening mammogram LIPID PANEL Routine 12/15/2023 from Last 3 Months or Most Recently Relevant to Health Maintenance Results * POC Protime INR Blood (01/11/2025) Only the most recent of9 resultswithin the time period is included. Lot Number INR POC 2.8 Prothrombin Time POC Exp Date Blood 01/11/2025 Soto You MD POINT OF CARE TEST ENTER/EDIT OR DERABLES Final Result * (ABNORMAL) CBC auto differential (01/04/2025 8:33 AM EDT) WBC 8.6 4.8 - 10.8 K/mcL LAB HEMETOLOGY METHOD 01/04/2025 10:45 AM [facility] RBC 4.30 3.80 - 4.80 M/mcL LAB HEMETOLOGY METHOD 01/04/2025 10:45 AM [facility] Hemoglobin 11.4(L) 11.5 - 16.0 g/dL LAB HEMETOLOGY METHOD 01/04/2025 10:45 AM [facility] Hematocrit 37.3 35.0 - 47.0 % LAB HEMETOLOGY METHOD 01/04/2025 10:45 AM [facility] MCV 85.9 79.0 - 98.0 FL LAB HEMETOLOGY METHOD 01/04/2025 10:45 AM [facility] MCH 26.3(L) 27.0 - 32.0 pcg LAB HEMETOLOGY METHOD 01/04/2025 10:45 AM [facility] MCHC 30.6(L) 32.0 - 37.0 g/dL LAB HEMETOLOGY METHOD 01/04/2025 10:45 AM [facility] RDW 17.2(H) 11.0 - 15.0 % LAB HEMETOLOGY METHOD 01/04/2025 10:45 AM [facility] Platelets 289 130 - 400 K/mcL LAB HEMETOLOGY METHOD 01/04/2025 10:45 AM [facility] MPV 9.8 7.0 - 11.0 FL LAB HEMETOLOGY METHOD 01/04/2025 10:45 AM [facility] NRBC 0.0 <1.0 % LAB HEMETOLOGY METHOD 01/04/2025 10:45 AM [facility] NRBC Absolute 0.00 <0.10 K/mcL LAB HEMETOLOGY METHOD 01/04/2025 10:45 AM [facility] Neutrophils Relative 69.1 % LAB HEMETOLOGY METHOD 01/04/2025 10:45 AM [facility] Lymphocytes Relative 17.5 % LAB HEMETOLOGY METHOD 01/04/2025 10:45 AM [facility] Monocytes Relative 5.1 % LAB HEMETOLOGY METHOD 01/04/2025 10:45 AM [facility] Eosinophils Relative 7.5 % LAB HEMETOLOGY METHOD 01/04/2025 10:45 AM [facility] Basophils Relative 0.5 % LAB HEMETOLOGY METHOD 01/04/2025 10:45 AM [facility] Immature Granulocytes Relative 0.3 % LAB HEMETOLOGY METHOD 01/04/2025 10:45 AM [facility] Neutrophils Absolute 5.96 1.50 - 7.00 K/mcL LAB HEMETOLOGY METHOD 01/04/2025 10:45 AM [facility] Lymphocytes Absolute 1.51 1.00 - 5.00 K/mcL LAB HEMETOLOGY METHOD 01/04/2025 10:45 AM [facility] Monocytes Absolute 0.44 0.20 - 1.00 K/mcL LAB HEMETOLOGY METHOD 01/04/2025 10:45 AM EDT [facility] Eosinophils Absolute 0.65(H) 0.00 - 0.50 K/[facility] LAB HEMETOLOGY METHOD 01/04/2025 10:45 AM EDT [facility] Basophils Absolute 0.04 0.00 - 0.20 K/[facility] LAB HEMETOLOGY METHOD 01/04/2025 10:45 AM EDT [facility] Immature Granulocytes Absolute 0.03 0.00 - 0.03 K/[facility] 01/04/2025 10:45 AM [facility] Blood Venous blood specimen / Unknown Venipuncture / Unknown 01/04/2025 8:33 AM EDT 01/04/2025 8:33 AM EDT us Soto You MD LAB BLOOD ORDERABLES Final Resul t [facility] [address] [place] [address], [place] [phone] * (ABNORMAL) Basic metabolic panel (01/04/2025 8:33 AM EDT) Only the most recent of2 resultswithin the time period is included. Sodium 138 133 - 145 mmol/L LAB CHEMISTRY METHOD 01/04/2025 11:02 AM [facility] Potassium 4.1 3.5 - 5.5 mmol/L LAB CHEMISTRY METHOD 01/04/2025 11:02 AM [facility] Chloride 103 96 - 110 mmol/L LAB CHEMISTRY METHOD 01/04/2025 11:02 AM [facility] CO2 25 21 - 32 mmol/L LAB CHEMISTRY METHOD 01/04/2025 11:02 AM [facility] Anion Gap 10 3 - 11 LAB CHE[facility]STR[facility] Glucose 121(H) 70 - 100 mg/dL LAB CHEMISTRY METHOD 01/04/2025 11:02 AM [facility] BUN 52(H) 5 - 25 mg/dL LAB CHEMISTRY METHOD 01/04/2025 11:02 AM [facility] Creatinine 1.54(H) 0.50 - 1.10 mg/dL LAB CHEMISTRY METHOD 01/04/2025 11:02 AM [facility] eGFR 37(L) >=60 mL/min/1. 73m2 LAB CHEMISTRY METHOD 01/04/2025 11:02 AM [facility] Comment:Calculation based on the Chronic Kidney Disease Epidemiology Collaboration (CKD-EPI) equation refit without adjustment for race. BUN/Creatinine Ratio 33.8 LAB CHEMISTRY METHOD 01/04/2025 11:02 AM [facility] Calcium 9.3 8.5 - 10.5 mg/dL LAB CHEMISTRY METHOD 01/04/2025 11:02 AM [facility] Blood Venous blood specimen / Unknown Venipuncture / Unknown 01/04/2025 8:33 AM EDT 01/04/2025 8:33 AM EDT us Soto You MD LAB BLOOD ORDERABLES Final Resul t [facility] [address] [place] [address], * (ABNORMAL) Prothrombin time with INR (12/04/2024 8:36 AM EDT) Protime 34.6(H) 10.6 - 13.9 sec LAB COAGULATION METHOD 12/04/2024 10:17 AM [facility] INR 2.8 LAB COAGULATION METHOD 12/04/2024 10:17 AM [facility] Blood Venous blood specimen / Unknown Venipuncture / Unknown 12/04/2024 8:36 AM EDT 12/04/2024 8:36 AM EDT Soto You MD LAB BLOOD ORDERABLES Final Resul t Performing Organization Address [facility]/ZIP Co de Phone Number [facility] [address] [place] [address], [place] [phone] * (ABNORMAL) B-type natriuretic peptide (12/04/2024 8:36 AM EDT) BNP 149(H) <=100 pcg/mL LAB CHEMISTRY METHOD 12/04/2024 10:58 AM EDT [facility] Blood Venous blood specimen / Unknown Venipuncture / Unknown 12/04/2024 8:36 AM EDT 12/04/2024 8:36 AM EDT Alanna [facility] LAB BLOOD ORDERABLES Final Res ult Performing Organization Address [facility] Co de Phone Number [facility] [address] [place] [address], [place] [phone] * MG Mammo Digital Diagnostic Left (08/18/2024 10:34 AM EDT) Anatomical Region Laterality Modality Breast Left Mammography 08/18/2024 9:11 AM EDT Impressions 08/18/2024 9:20 AM EDT Stable appearance of coarse calcifications posteriorly in the upper outer quadrant of the left breast as compared to 02/18/2024 and 02/14/2024. Bilateral mammography in 6 months is recommended which will provide for additional short-term follow-up of the left breast and annual mammography of the right breast. BI-RADS CATEGORY: 3 - PROBABLY BENIGN RECOMMENDATION: Short Interval Follow-up is recommended for bilateral breasts in 6 months. Mammo Location: [facility], [address] [place] [id number] -------- FINAL REPORT -------- Dictated By: Cuauhtemoc Storey Dictated Date: 08/18/2024 09:11 ET Assigned Physician: Cuauhtemoc Storey Reviewed and Electronically Signed By: Cuauhtemoc Storey Signed Date: 08/18/2024 09:20 ET Workstation ID: [id number] Transcribed By: Self Edit Transcribed Date: 08/18/2024 09:11 ET Narrative 08/18/2024 9:20 AM EDT CLINICAL: The patient is a 68 years Female presenting for follow-up of coarse calcifications posteriorly in the upper-outer quadrant of the left breast. As per report of the previous mammogram performed 02/18/2024, the patient is reluctant to undergo biopsy as she has a significant cardiac history and takes Coumadin and Plavix; anticoagulation cannot be discontinued and therefore biopsy required would require a heparin bridge. She has therefore opted for continued mammographic surveillance. COMPARISON: Most recently 02/18/2024 and most remotely 12/05/2018. TECHNIQUE: Digital mammography of the left breast in spot magnification true lateral and CC projections is performed. Computer aided detection utilizing the iCAD system was utilized. FINDINGS: Again seen is a group of coarse calcifications without significant change as compared to recent prior studies performed 02/18/2024 and 02/14/2024. There has been no increase in [...] bilateral breasts in 6 months. Mammo Location: [facility], [address] [place] [id number] -------- FINAL REPORT -------- Dictated By: Cuauhtemoc Storey Dictated Date: 08/18/2024 09:11 ET Assigned Physician: Cuauhtemoc Storey Reviewed and Electronically Signed By: Cuauhtemoc Storey Signed Date: 08/18/2024 09:20 ET Workstation ID: [id number] Transcribed By: Self Edit Transcribed Date: 08/18/2024 09:11 ET Soto You MD IMG BI PROCEDURES Final Result * (ABNORMAL) Lipid panel (12/15/2023) LDL/HDL Ratio [...] Maintenance Insurance [employer] [place] Care 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
--- OUTSIDE RECORDS SUMMARY | 2025-01-18 09:05 | XMS_ITS | Patient Health Record ---
Author Organization [facility] Address [address] [place] [address] Care Team Providers Care Retail Pharmacy Merchandiser Name Role Phone Sarah Lopez Unavailable [phone] Allergies Allergen (clinical drug ingredient) Drug/Non Drug Allergy documented on EMR Reaction Allergy Type Onset Date Status amiodarone Amiodarone HCl Hot Feeling Drug Allergy Active ciprofloxacin Cipro Face Swelling Drug Allergy Active Reason For Referral No Information Medications Medication SIG (Take, Route, Frequency, Duration) Notes Start Date End Date Status rOPINIRole HCl 0.25 MG TAKE 1 TABLET BY MOUTH FOUR TIMES A DAY Oral; Duration: 90 Active Warfarin Sodium 2.5 MG 1 [...] 1 TABLET BY MOUTH IN THE MORNING Oral; Duration: 90 Active Levothyroxine Sodium 125 MCG 1 [...] Status Risk Notes Problem Postmenopausal atrophic vaginitis (76470037) Postmenopausal atrophic vaginitis (N95.2) Active confirmed Problem Rheumatic heart disease, unspecified (I09.9) Active confirmed Plan Of Treatment Pending Test Test Name Order Date MAMMOGRAM, SCREENING 12/11/2019 BONE DENSITY 02/11/2018 MM Digital Mammo Screening 12/11/2019 Insurance Providers Payer Name Payer Address Payer Phone Subscriber Number Group Number Insured Name Patient Relationship to Insured Coverage Start Date Coverage End Date [facility] [address] [place] [address] [id number] DIPTI TRISTAN Self - patient is the [...]
--- OUTSIDE RECORDS SUMMARY | 2025-01-18 09:05 | XMS_ITS | Clinical Summary ---
Author Organization [facility] Address [address] [place], [place] [id number] Phone Care Team Providers Care Career Representative Name Role Phone Soto You MD Primary Care Provider Social History Tobacco Use Types Packs/Day Years Used Date Smoking Tobacco: Never Assessed Education Answer Date Recorded Are you interested in more education? Not on darrius e 10/02/2022 Are you concerned about learning? Not on file 10/02/2022 No 10/02/2022 No 10/02/2022 Digital Access Answer Date Recorded No 10/31/2022 No 10/31/2022 No 10/31/2022 Reliable internet access at home? Not on file 10/31/2022 Device with a working camera? Not on file Comments Unknown Sex and Gender Information Value Date Recorded Sex Assigned at Not on file Legal Sex Female 10:35 PM EDT Gender Identity Not on file Sexual Orientation Not on file Plan of Treatment Health Maintenance Due Date Last Done Comments Adult Td,Tdap Booster 1956 LIPID PANEL 1956 DEPRESSION SCREENING 1968 SMOKING Hx and SMOKELESS TOBACCO SCREENING 1969 HEPATITIS C SCREENING 1974 MAMMOGRAM 1996 COLOGUARD 2001 COLONOSCOPY 2001 COLORECTAL CANCER SCREENING 2001 FIT TEST 2001 FOBT 2001 SIGMOIDOSCOPY 2001 VIRTUAL COLONOSCOPY 2001 PNEUMOCOCCAL VACCINES (50+ years) (1 of 1 - PCV) 2006 ZOSTER VACCINES (1 of 2) 2006 OSTEOPOROSIS SCREENING INITI AL (ONE-TIME) 2021 COVID-19 VACCINE (2023-2 5 season) 2024 08/10/2020, 07/20/2020 RSV VACCINE (1 - 1-dose 75+ series) 12/28/2031 HEPATITIS A VACCINES Aged Out No long er eligible based on patient's age to complete this topic HIB VACCINES Aged Out No longer eligi ble based on patient's age to complete this topic MENINGOCOCCAL VACCINES (ACWY) Aged Out No longer eligible based on patient's age to complete this topic MENINGOCOCCAL VACCINES (B) Aged Out N o longer eligible based on patient's age to complete this topic Medical Devices Not on file Insurance [address] [place], [place] [address]O O O O O O O Care Teams Career Representative Relationship Specialty Start Date End Date Soto You MD [address] [place] [address] PCP - General Internal Medicine 09/07/18 Additional Source Comments The information contained in this document represents components of the legal health record. It is not the complete legal health record.[facility]
--- OUTSIDE RECORDS SUMMARY | 2025-01-18 09:05 | XMS_ITS | Patient Health Record ---
Author Organization [facility] Address [address] [place] [address] Care Team Providers Care Instrument Technologist Name Role Phone Kenyatta FREIRE, [facility] Primary Care Provider Andrew Starks Jr Unavailable Allergies Allergen (clinical drug ingredient) Drug/Non Drug Allergy documented on EMR Reaction Allergy Type Onset Date Status ciprofloxacin Cipro Unknown Drug Allergy Act lucinda amiodarone Amiodarone HCl Unknown Drug Allergy A ctive Reason For Referral No Information Medications Medication SIG (Take, Route, Frequency, Duration) Notes Start Date End Date Status Spironolactone 25 MG Oral for 90 Active rOPINIRole HCl 1 MG Oral for 30 Active Iron 325 (65 Fe) MG 1 tablet Orally Thre e times a Week Active Nitroglycerin 0.4 MG Sublingual for 7 as needed Active Pantoprazole Sodium 40 MG TAKE 1 TABLET BY MOUTH ONCE DAILY Oral for 90 Active Atorvastatin Calcium 80 MG TAKE 1 TABLET BY MOUTH ONCE DAILY Oral for 90 Active Metoprolol Succinate ER 100 MG TAKE 1 TABLET BY MOUTH TWICE DAILY Oral for 90 Active Clopidogrel Bisulfate 75 MG Oral for 90 Active Levothyroxine Sodium 0.137mg Active Warfarin Sodium 2.5mg Active Lasix 20mg Active Immunizations Vaccine Route Administration Date Status Comme nts Influenza Unknown 12/13/2024 Refused Problems Problem Type SNOMED Code ICD Code Onset Dates Problem Status W/U Status Risk Notes Problem 008479469 Colon cancer screening (Z12.11) Active confirmed Problem 254795212 senior living (current) use of anticoagulants (Z79.01) Active confirmed Problem 561539325 Encounter for other preprocedural examination (Z01.818) Active confirmed Problem 512649794 Family history o f colon cancer (Z80.0) Active confirmed Problem 70195047212030548 senior living curr ent use of diuretic (Z79.899) Active confirmed Vital Signs Temperature 97.9 degrees Fahrenheit 12/13/2024 Blood pressure diastolic 01 mm Hg 12/13/2024 Height 65 in 12/13/2024 Blood pressure systolic 001 mm Hg 12/13/2024 Weight 198.4 lbs 12/13/2024 BMI 33.01 kg/m2 12/13/2024 Encounters Encounter Location Date Provider Diagnosis [facility] [address] [place] [address] 12/13/2024 Andrew Hernandez Jr Plan Of Treatment Future Test Test Name Order Date COLONOSCOPY 04/27/2013 COLONOSCOPY 01/07/2023 Next Appt Details Provider Name:Andrew poole Jr, 06/18/2025 09:20:00 AM, [address], [address], [place], [address], Insurance Providers Payer Name Payer Address Payer Phone Subscriber Number Group Number Insured Name Patient Relationship to Insured Coverage Start Date Coverage End Date [facility] [address] [place] [phone] [id number] DIPTI TRISTAN Self - patient is the insured MEDICAID OF [employer] [address] [place] [phone] [id number] DIPTI TRISTAN Self - patient is the insured Medical (General) History Medical History History ICD Code Colonoscopy 09/18, hyperplast ic polyp, five-year followup due to family history of colon cancer mitral valve replacement with [facility] V alve Rheumatic fever as a child hypothyroidism elevated cholesterol Atrial fibrillation heart attacks 03/2015,09/2015 ,08/2018,10/2018,[id number], Cardiology: Dr. Bansal phone # [phone] hypertension TAVR 03/26 CPAP, no sleep apnea Restless leg syndrome stroke in eye edema Surgical History Surgery Date(Month/Year) heart surgery-valve replacement x2- dr. bansal uterine ablation for bleeding removal of a left ovary and fallopian tu be appendectomy
== END 2025-01-18 09:46 | disposition home or self-care (01) ==
LOC: HO.HSMS 08:48
PROVIDERS: PCP Internal Medicine; Visit Provider Physician Assistant Medical
DX: G47.33 Obstructive sleep apnea (adult) (pediatric) (principal); G25.81 Restless legs syndrome; R53.83 Other fatigue; G47.9 Sleep disorder, unspecified; G47.00 Insomnia, unspecified
CPT/HCPCS: 99214

== ENCOUNTER → 2025-01-18 08:42 | Outpatient (BNVA) | payer MEDICARE, MEDICAID, SELFPAY | PROVIDERS: PCP Internal Medicine; Visit Provider Physician Assistant Medical | DX: G47.33 Obstructive sleep apnea (adult) (pediatric) (principal); G25.81 Restless legs syndrome; R53.83 Other fatigue; G47.9 Sleep disorder, unspecified; G47.00 Insomnia, unspecified | CPT/HCPCS: 99212 ==

== ENCOUNTER → 2025-03-28 08:49 | Outpatient (REF) | payer MEDICARE, MEDICAID, SELFPAY ==
--- OUTSIDE RECORDS SUMMARY | 2025-03-28 09:27 | XMS_ITS | Clinical Summary ---
Author Organization [facility] Address [address] [place], [place] [id number] Phone Care Team Providers Care Sap Grc Security Name Role Phone Soto You MD Primary Care Provider [phone] Social History Tobacco Use Types Packs/Day Years [...] 2006 OSTEOPOROSIS SCREENING INITI AL (ONE-TIME) 2021 INFLUENZA VACCINE (#1) 2025 1, 04/26/2009 COVID-19 VACCINE (3 - 2024-2 6 season) 2025 08/10/2020, 07/20/2020 RSV VACCINE (1 - 1-dose [...] Medical Devices Not on file [facility] [address] [place] [id number] [facility] Care Teams Sap Grc Security Relationship Specialty Start Date End Date Soto You MD [address] [place] [id number] PCP - General Internal Medicine 09/07/18 Additional Source Comments The information contained in this document represents components of the legal health record. It is not the complete legal health record.[facility]
== END ==
LOC: HO.SL 08:49
PROVIDERS: PCP Internal Medicine; Visit Provider Physician Assistant Medical
DX: G47.19 Other hypersomnia (principal)
CPT/HCPCS: 95806

== ENCOUNTER → 2025-03-28 09:05 | Outpatient (BNV) | payer MEDICARE, MEDICAID, SELFPAY | PROVIDERS: PCP Internal Medicine; Visit Provider Psychiatry & Neurology Neurology | DX: G47.33 Obstructive sleep apnea (adult) (pediatric) (principal) | CPT/HCPCS: 95806 ==

== ENCOUNTER 2025-04-25 08:14 | Outpatient (AMB) | payer MEDICARE, MEDICAID, SELFPAY ==
--- NOTE | 2025-04-25 08:41 | MHC.OFFVIS ---
Vital Signs 04/25/25 08:46 Height 5 ft 3 in BMI Reason not done Patient refused/unable BP 114/80 Blood Pressure Location Lt brachial Position Sitting Pulse 51 Pulse Source Pulse Oximeter Pulse Oximetry (%) 97 Oxygen Delivery Method Room Air Intake Visit Reasons: 3 months F/U Intake Note: Patient presents follow up RLS/ELDER medication. HST in chart(AHI-21, BENTON-82%. APAP 5-20cm) Allergies amiodarone Allergy (Unknown, Verified 04/25/25 08:47) Itching ciprofloxacin (Cipro) Allergy (Unknown, Verified 04/25/25 08:47) Facial Swelling HPI Comments Details: 69y/o female with Afib presents for a follow up for RLS and ELDER. HST reviwed with pt today, AHI is 21 and oxygen nadirs to 82%, she has moderate elder, will start her on cpap therapy with nasal pillows, airfit n30. She had a TIA in Jun 2022 with [facility], and complete work up at [facility]. She had L. visual field vision loss and L. sided facial neuropathy which resolved. She sees a retina specialist and vision has significantly improved, new dx of glaucoma. She had a Mitral valve replacement with [facility] Epic valve and / Aortic Valve stent replacement. She has difficulty falling asleep at night, sits in the recliner and does crafts until 2am because she enjoys it. She has RLS symptoms and takes requip XR 6mg qhs to help with calm the legs at night as her symptoms are worse at night, with numbness, uncomfortable tingling sensation that radiates bilaterally she can not stop moving her legs. She gets out of the recliner walks around and stands up to stretch them. She c/o of swelling in her legs, and forgets to put on the compression stockings but elevates the feet daily. Her memory, and mood are good most days well managed, will take Lorazepam 0.5mg as needed for anxiety occasionally. Diet is poor, though she would like to start zepbound, her insurance denied it, she will try again as this will help with her to start being active again. 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 Hyperlipidemia HTN (hypertension) GERD (gastroesophageal reflux disease) Heart disease Atrial fibrillation Surgical History H/O colonoscopy History of appendectomy H/O hysterectomy for benign disease Aortic valve replaced Mitral valve replaced Social History Alcohol intake: never Patient Tobacco Use Status: Never used Tobacco Physical Exam Vital Signs: Last Vital Signs Pulse 51 04/25/25 08:46 BP 114/80 04/25/25 08:46 Pulse Ox 97 04/25/25 08:46 Oxygen Delivery Method Room Air 04/25/25 08:46 Const General: cooperative, comfortable and no acute distress Orientation/consciousness: patient oriented x3 HEENT Face and sinus: Yes other (mild facial asymmety noted on smile.) Teeth and gingiva: other (Mallampti score is 4) Eyes Pupils: Equal, round and reactive pupils present Neck Neck: Yes other (Limited ROM to the R. Trapezius and Scalenes tight) Resp Effort & Inspection: normal respiratory effort and able to speak in complete sentences Neuro General: patient oriented x3 and moves all extremities Cranial nerves: Yes Facial sensation intact/muscles of mastication intact, Yes Equal, round and reactive pupils present, Yes Normal accommodation reflex present, Yes Nystagmus not present, Yes Normal facial strength present, Yes Midline tongue present, Yes Ability to bilaterally rotate head present (Limited ROM to the R) and Yes Ability to bilaterally elevate shoulders present Cognition (Neuro): normal cognition Gait exam (Neuro): Normal gait present Motor exam (neuro): 5/5 motor strength present throughout and Tremors during motor activity present (LUE hand tremor mild ) Psych Appearance: grossly normal Mental Status: mental status grossly normal Thought process: Normal thought process present Thought content: Normal thought content present Results Reviewed Results Reviewed: HST reviwed with pt today, AHI is 21 and oxygen nadirs to 82%, she has moderate elder, will start her on cpap therapy with nasal pillows, airfit n30. Assessment & Plan Assessment & Plan (1) Obstructive sleep apnea: Comment: PSG - no show- HST submitted today. 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 rx sent to [facility]. RLS will continue her on Ropinorole XR 6mg qhs, will take one additional pill if needed for worsening symptoms. Requipt 0.25mg QID and Requip 6mg xr qhs (BID). Labs reviewed with patient.continue magnesium 400mg PO at bedtime. continue B6 for nerve pain 100mg PO at bedtime Bilateral pitting edema f/u with pcp, elevate your feet, use compression stockings daily 2-4 hours at a minimum. F/U 3 months to monitor for compliance Medications: Changed From ropinirole ER May take 1 tablets daily at bedtime for Restless leg syndrome. 12 mg PO BEDTIME 90 days 90 tabs 6RF Restless Legs Syndrome MDD 12 mg G25.81 - Restless legs syndrome To ropinirole ER May take 1 tablets daily at bedtime for Restless leg syndrome. 6 mg PO BEDTIME 90 tabs 6RF Restless Legs Syndrome 90 days MDD 6mg G25.81 - Restless legs syndrome From ropinirole 1-4 tabs qhs orally bedtime; administer 1-3 hours before bedtime 90 days 360 tabs 3RF G25.81 - Restless legs syndrome To ropinirole 0.25mg po QID 0.25 mg PO QID 360 tabs 3RF rest less legs 90 days MDD 4 tablets G25.81 - Restless legs syndrome Patient Instructions: Please complete the following fasting labs to rule out deficiencies. CBC/CMP/ B12/ Vit D/ TSH/ Homocysteine and MMA/ Ferritin. Sleep Hygiene provided: set a scheduled bedtime and wake time to help regulate the circadian rhythm and balance the release of pituitary hormones. Sleep in a dark room, temperatures below 68 degrees, and no devices n bed. Limit caffeinated products 6 hours prior to bed, and limit fluids 2-4 hours prior to bed. Gentle night yoga, diffusing essential oils, and playing soft music can be relaxing. Coding Level of Care Code Est Pt Level 4 (46433) Diagnoses Obstructive sleep apnea G47.33 Restless legs syndrome G25.81 Insomnia disorder related to known organic factor G47.00 Fatigue due to sleep pattern disturbance R53.83; G47.9
[2025-04-25 08:46] VITALS: BP 114/80; PULSE 51; O2SAT 97
--- OUTSIDE RECORDS SUMMARY | 2025-04-25 15:51 | XMS_ITS | Patient Health Record ---
Author Organization [facility] Address [address] [place] [address] Care Team Providers Care Associate Loan Officer Name Role Phone Kenyatta FREIRE, [facility] Primary Care Provider Andrew Starks Jr Unavailable Allergies Allergen (clinical drug ingredient) Drug/Non Drug Allergy documented on EMR Reaction Allergy Type Onset Date Status amiodarone Amiodarone HCl Unknown Drug Allergy A ctive ciprofloxacin Cipro Unknown Drug Allergy Act lucinda Reason For Referral No Information Medications Medication SIG (Take, Route, Frequency, Duration) Notes Start Date End Date Status Spironolactone 25 MG Tablet Oral; Duration: 90 Active rOPINIRole HCl 1 MG Tablet Oral; Duration: 30 Active Iron 325 (65 Fe) MG Tablet 1 tablet Oral ly Three times a Week Active Nitroglycerin 0.4 MG Tablet Sublingual Sublingual; Duration: 7 as needed Active Pantoprazole Sodium 40 MG Tablet Delayed Release TAKE 1 TABLET BY MOUTH ONCE DAILY Oral; Duration: 90 Active Atorvastatin Calcium 80 MG Tablet TAKE 1 TABLET BY MOUTH ONCE DAILY Oral; Duration: 90 Active Metoprolol Succinate ER 100 MG Tablet Extended Release 24 Hour TAKE 1 TABLET BY MOUTH TWICE DAILY Oral; Duration: 90 Active Clopidogrel Bisulfate 75 MG Tablet Oral; Duration: 90 Active Levothyroxine Sodium 0.137mg Active Warfarin Sodium 2.5mg Active Lasix 20mg Active Immunizations Vaccine Route Administration Date Status Comme nts Influenza Unknown 12/13/2024 Refused Social History Social History Additional Details Category Social Info Options Details Miscellaneous: Marital status: Occupation: [employer] Problems Problem Type SNOMED Code ICD Code Onset Dates Problem Status W/U Status Risk Notes Problem Colon cancer screening (647703650) Colon cancer screening (Z12.11) Active confirmed Problem Long-term current use of anticoagulant (722358203) senior care (current) use of anticoagulants (Z79.01) Active confirmed Problem Pre-procedure evaluation check (324010787) Encounter for other preprocedural examination (Z01.818) Active confirmed Problem Family History of Cancer of Colon (Situation) (623239660) Family history of colon cancer (Z80.0) Active confirmed Problem Anemia (677989901) Anemia (D64.9) Active confirmed Problem Long-term current use of drug therapy (023362917) meterman current use of diuretic (Z79.899) Active confirmed Vital Signs Temperature 97.9 degrees Fahrenheit 12/13/2024 Blood pressure diastolic 01 mm Hg 12/13/2024 Height 65 in 12/13/2024 Blood pressure systolic 001 mm Hg 12/13/2024 Weight 198.4 lbs 12/13/2024 BMI 33.01 kg/m2 12/13/2024 Encounters Encounter Location Date Provider Diagnosis [facility] [address] [place] [address] 12/13/2024 Andrwe Hernandez Jr Anemia D64.9 ; Colon cancer screening Z12.11 and Family history of colon cancer Z80.0 Assessments Encounter Date Diagnosis (ICD Code) Assessment Notes Treatment Notes Treatment Clinical Notes Section Notes 12/13/2024 Colon cancer screening (ICD-10 - Z12.11) Currently, she is doing well. Her anemia is under good control. She will continue to follow-up with her primary care provider for this. There does not appear to be any GI source for her anemia at this time. We discussed this today. She is up-to-date on colorectal cancer screening. Follow-up as above. Follow-up in the office will be in 1 year. 12/13/2024 Anemia (ICD-10 - D64.9) Currently, she is doing well. Her anemia is under good control. She will continue to follow-up with her primary care provider for this. There does not appear to be any GI source for her anemia at this time. We discussed this today. She is up-to-date on colorectal cancer screening. Follow-up as above. Follow-up in the office will be in 1 year. 12/13/2024 Family history of colon cancer (ICD-10 - Z80.0) Currently, she is doing well. Her anemia is under good control. She will continue to follow-up with her primary care provider for this. There does not appear to be any GI source for her anemia at this time. We discussed this today. She is up-to-date on colorectal cancer screening. Follow-up as above. Follow-up in the office will be in 1 year. Plan Of Treatment Future Test Test Name Order Date COLONOSCOPY 04/27/2013 COLONOSCOPY 01/07/2023 Next Appt Details Provider Name:Andrew Powell Boyd poole , 06/18/2025 09:20:00 AM, [address], [address], [place], [address], Insurance Providers Payer Name Payer Address Payer Phone Subscriber Number Group Number Insured Name Patient Relationship to Insured Coverage Start Date Coverage End Date [facility] [address] [place] [phone] [id number] DIPTI TRISTAN Self - patient is the insured 4 MEDICAID OF [facility] [address] [place] [address] [id number] DIPTI TRISTAN Self - patient is the insured Medical (General) History Medical History History ICD Code Colonoscopy 03/29, small tub ular adenoma, 5-year follow-up for family history mitral valve replacement with [facility] V alve Rheumatic fever as a child hypothyroidism elevated cholesterol Atrial fibrillation Coronary artery disease with history of [place] Cardiology: Dr. Aranda phone # [phone] hypertension TAVR 03/26 Sleep apnea, not using CPAP Restless leg syndrome Ocular CVA Anxiety/depression Surgical History Surgery Date(Month/Year) appendectomy removal of a left ovary and fallopian tu be uterine ablation for bleeding Valve replacements as above
--- OUTSIDE RECORDS SUMMARY | 2025-04-25 15:52 | XMS_ITS | Clinical Summary ---
Author Organization [facility] Address [address] [place] [address] Care Team Providers Care Charge Rn Name Role Phone Soto You MD Primary Care Provider [phone] Allergies Active Allergy Reactions Criticality Noted Date [...] DO NOT CRUSH,CHEW OR SPIT. 90 tablet 10/04/19 25 Active cyanocobalamin (VITAMIN B-12) 1,000 mcg tablet TAKE 1 TABLET (1,000 MCG TOTAL) BY MOUTH ONCE DAILY 90 tablet 10/04/19 25 Active albuterol HFA (PROAIR HFA ; PROVENTIL HFA ; VENTOLIN HFA) 90 mcg/actuation inhaler Inhale 2 puffs by mouth every 6 (six) hours if needed for wheezing. 6.7 each 1 11/10/19 25 Active levothyroxine (SYNTHROID, LEVOTHROID) 150 mcg tablet TAKE 1 TABLET BY MOUTH EVERY DAY 90 tablet 1 12/20/19 25 Active spironolactone (ALDACTONE) 25 mg tablet TAKE 1 TABLET BY MOUTH EVERY DAY 90 tablet 1 12/20/19 25 Active torsemide (DEMADEX) 20 mg tablet Take 1 tablet (20 mg total) by mouth 2 (two) times a day. 02/17/20 25 Active warfarin (COUMADIN) 2.5 mg tablet TAKE 1 -2 TABS DIRECTED AT SAME TIME DAILY MAY CAUSE HEAVY BLEEDING DO NOT CHANGE DIETARY HABITS 180 tablet 1 03/16/20 25 Active pantoprazole (PROTONIX) 40 mg EC tablet TAKE 1 TABLET BY MOUTH EVERY DAY 90 tablet 04/02/20 25 Active atorvastatin (LIPITOR) 80 mg tablet TAKE 1 TABLET BY MOUTH EVERY DAY 90 tablet 04/02/20 25 Active pantoprazole (PROTONIX) 40 mg EC tablet TAKE 1 TABLET BY MOUTH EVERY DAY 90 tablet 1 09/19/19 25 025 Discontinued atorvastatin (LIPITOR) 80 mg tablet TAKE 1 TABLET BY MOUTH EVERY DAY 90 tablet 1 09/19/19 25 025 Discontinued Active Problems Problem Noted Date Diagnosed Date H/O mechanical aortic valve replacement 11/12/20 24 Hx of mitral valve replacement with [...] Encounters Date Type Department Care Team Description 04/06/2025 8:00 AM EDT Clinical Support [facility] [address] [phone] H/O mechanical aortic valve replacement (Primary Dx); Hx of mitral valve replacement with mechanical valve 03/16/2025 8:00 AM EDT Anticoagulation - Warfarin Visit [facility] [address] [phone] H/O mechanical aortic valve replacement (Primary Dx); Hx of mitral valve replacement with mechanical valve 03/13/2025 Telephone Breast Care [address] [phone] Almita Jensen MD 03/07/2025 2:00 PM EDT Consult Breast [address] [phone] Almita Jensen MD Abnormal mammogram (Primary Dx); H/O mechanical aortic valve replacement; Hx of mitral valve replacement with mechanical valve; Atrial fibrillation, unspecified type (CMS/HCC V24, CMS/HCC V28); History of acute myocardial infarction; History of multiple myocardial infarctions; Anticoagulated 03/01/2025 8:10 AM EDT Anticoagulation - Warfarin Visit [facility] [address] [phone] H/O mechanical aortic valve replacement (Primary Dx); Hx of mitral valve replacement with mechanical valve 02/22/2025 7:40 AM EDT Anticoagulation - Warfarin Visit Coumadin [address] [phone] H/O mechanical aortic valve replacement (Primary Dx); Hx of mitral valve replacement with mechanical valve 02/20/2025 7:46 AM EDT - 02/20/2025 11:59 PM EDT [facility] [address] [phone] Abnormality of left breast on screening mammogram Discharge Disposition: Home or Self Care 02/20/2025 Telephone [facility] [address] [phone] Kailyn Hernández RN 02/07/2025 8:50 AM EDT [facility] [address] [phone] H/O mechanical aortic valve replacement (Primary Dx); Hx of mitral valve replacement with mechanical valve 01/25/2025 8:20 AM EDT [facility] [address] [phone] H/O mechanical aortic valve replacement (Primary Dx); Hx of mitral valve replacement with mechanical valve from Last 3 Months Immunizations Immunization Administration Dates Next Due H1N1 Inj Preservative [...] V28) DX:NSTEMI (non- ST elevated myocardial infarction) ([facility]) Family History Medical History Relation Name Comments [...] Sign Reading Time Taken Comments Blood Pressure 121/79 03/07/2025 2:05 PM EDT Pulse 83 03/07/2025 2:05 PM EDT Temperature 36.4 C (97.6 F) 03/07/2025 2:05 PM EDT Respiratory Rate 20 12/28/2024 8:26 AM EDT Oxygen Saturation 97% 06/22/2024 8:27 AM EST Inhaled Oxygen Concentration - - Weight 89.4 kg (197 lb) 12/28/2024 8:26 AM EDT Height 160 cm (5' 3 ) 12/28/2024 8:26 AM EDT Body Mass Index 34.9 12/28/2024 8:26 AM EDT Plan of Treatment Upcoming Encounters Date Type Department Care Team (Late st Contact Info) Description 04/30/2025 8:15 AM EST Clinical Support Coumadin [address] [phone] 04/30/2025 8:45 AM EST Office Visit Adult Medicine [address] [phone] Alonso Baldwin MANAGER OFFICE SERVICES [address] [place], [place] Health Maintenance Due Date Last Done Comments Colorectal Cancer Screening: Colonoscopy 1955 DTaP,Tdap,and Td Vaccines (1 - Tdap) 12/28/1975 Pneumococcal Vaccine: 50+ Years (1 of 2 - PCV) 12/28/1975 RSV Immunization Adult Patients (1 - Risk 50-74 years 1-dose series) 2006 Zoster Vaccines (1 of 2) 2006 Medicare Annual Wellness Visit 04/22/2020 Osteoporosis Screening (Bone Density Screening) 04/22/2020 Social Influencers of Health Screening 04/22/2020 Falls Risk Assessment 2021 Depression Screening 06/07/2024 COVID-19 Vaccine ( season) 2025 08/10/2020, 07/20/2020 Influenza Vaccine (#1) 2025 5, 03/18/2014, 04/21/2011, Additional history exists Hypertension/CHF/CAD Annual BMP Blood Test 02/14/2026 02/14/2025, 01/04/2025, 12/04/2024, Additional history exists Breast Cancer Screening 02/20/2027 02/21/20 25, 08/18/2024, 02/14/2024, Additional history exists Cholesterol Screening (Lipid [...] Diagnosis Comments POC PROTIME INR BLOOD Routine 04/06/2025 7:53 AM EDT H/O mechanical aortic valve replacement Hx of mitral valve replacement with mechanical valve POC PROTIME INR BLOOD Routine 03/16/2025 7:54 AM EDT H/O mechanical aortic valve replacement Hx of mitral valve replacement with mechanical valve POC PROTIME INR BLOOD Routine 03/01/2025 H/O mechanical aortic valve replacement Hx of mitral valve replacement with mechanical valve POC PROTIME INR BLOOD Routine 02/22/2025 H/O mechanical aortic valve replacement Hx of mitral valve replacement with mechanical valve MG MAMMO DIGITAL DIAGNOSTIC W SHON BILAT Routine 02/20/2025 9:40 AM EDT Abnormality of left breast on screening mammogram B-TYPE NATRIURETIC PEPTIDE Routine 02/14/2025 8:26 AM EDT Renal cyst Atrial fibrillation, unspecified type (CMS/HCC V24, CMS/HCC V28) H/O mechanical aortic valve replacement BASIC METABOLIC PANEL Routine 02/14/2025 8:26 AM EDT Renal cyst Atrial fibrillation, unspecified type (CMS/HCC V24, CMS/HCC V28) H/O mechanical aortic valve replacement POC PROTIME INR BLOOD Routine 02/07/2025 H/O mechanical aortic valve replacement Hx of mitral valve replacement with mechanical valve POC PROTIME INR BLOOD Routine 01/25/2025 H/O mechanical aortic valve replacement Hx of mitral valve replacement with mechanical valve LIPID PANEL Routine 12/15/2023 from Last 3 Months or Most Recently Relevant to Health Maintenance Results * POC Protime INR Blood (04/06/2025 7:53 AM EDT) Only the most recent of6 resultswithin the time period is included. Lot Number INR POC 2.6 Prothrombin Time POC Exp Date Blood 04/06/2025 7:53 AM EDT Historical Provider MD POINT OF CARE TEST ENTER/ EDIT ORDERABLES Final Result * (ABNORMAL) MG Mammo Digital Diagnostic w Shon bilat (02/20/2025 9:40 AM EDT) Anatomical Region Laterality Modality Breast Bilateral Mammography 02/20/2025 8:49 AM EDT Impressions 02/20/2025 11:50 AM EDT Increasing calcifications in the left upper outer breast. Patient is on COUMADIN and PLAVIX and is unable to hold medications due to cardiac history. Recommend surgical consultation for possible excisional biopsy. Results and recommendation were discussed with patient at time of the appointment. BI-RADS CATEGORY: 4 - SUSPICIOUS RECOMMENDATION: Surgical consultation/management recommended for the left breast. Mammo Location: [facility], [address] [place] [address], [id number], . -------- FINAL REPORT -------- Dictated By: Eva Alford Dictated Date: 02/20/2025 08:49 ET Assigned Physician: Eva Alford Reviewed and Electronically Signed By: Eva Alford Signed Date: 02/20/2025 11:50 ET Workstation ID: [id number] Transcribed By: Self Edit Transcribed Date: 02/20/2025 09:21 ET Narrative 02/20/2025 11:50 AM EDT CLINICAL: 69 years old, Female, follow-up left breast calcifications. COMPARISON: Multiple prior studies dating back 07/27/2013 FINDINGS: MAMMOGRAPHY TECHNIQUE: Bilateral MLO and CC views were obtained digitally with 3-D mammogram (digital breast tomosynthesis). Computer-aided detection was utilized in evaluation of this exam (CAD). There are grouped calcifications in the left upper outer breast at posterior depth measuring 2.2 x 1.6 cm. There has been slight interval increase in size and number since prior exam and significant change since 2019. There is no evidence of suspicious mass or architectural distortion. BREAST DENSITY: B - There are scattered areas of fibroglandular density. Procedure Note Eva Alford MD - 02/20/2025 CLINICAL: 69 years old, Female, follow-up left breast calcifications. COMPARISON: Multiple prior studies dating back 07/27/2013 FINDINGS: MAMMOGRAPHY TECHNIQUE: Bilateral MLO and CC views were obtained digitally with 3-Dmammogram (digital breast tomosynthesis). Computer-aided detection wasutilized in evaluation of this exam (CAD). There are grouped calcifications in the left upper outer breast atposterior depth measuring 2.2 x 1.6 cm. There has been slight intervalincrease in size and number since prior exam and significant change [id number]. There is no evidence of suspicious mass or architecturaldistortion. BREAST DENSITY: B - There are scattered areas of fibroglandular density. IMPRESSION: Increasing calcifications in the left upper outer breast. Patient is onCOUMADIN and PLAVIX and is unable to hold medications due to cardiachistory. Recommend surgical consultation for possible excisional biopsy.Results and recommendation were discussed with patient at time of theappointment. BI-RADS CATEGORY: 4 - SUSPICIOUS RECOMMENDATION: Surgical consultation/management recommended for the left breast. Mammo Location: [facility], [address] [place], [place], [address], . -------- FINAL REPORT -------- Dictated By: Eva Alford Dictated Date: 02/20/2025 08:49 ET Assigned Physician: Eva Alford Reviewed and Electronically Signed By: Eva Alford Signed Date: 02/20/2025 11:50 ET Workstation ID: [id number] Transcribed By: Self Edit Transcribed Date: 02/20/2025 09:21 ET Soto You MD IMG BI PROCEDURES Final Result * (ABNORMAL) B-type natriuretic peptide (02/14/2025 8:26 AM EDT) [facility] BNP 135(H) <=100 pcg/mL LAB CHEMISTRY METHOD 02/14/2025 10:39 AM EDT [facility] Blood Venous blood specimen / Unknown Venipuncture / Unknown 02/14/2025 8:26 AM EDT 02/14/2025 8:26 AM EDT Alanna [facility] LAB BLOOD ORDERABLES Final Res ult [facility] [address] [place] [address], [place] [phone] * (ABNORMAL) Basic metabolic panel (02/14/2025 8:26 AM EDT) [facility] Sodium 140 133 - 145 mmol/L LAB CHEMISTRY METHOD 02/14/2025 11:01 AM EDT [facility] Potassium 3.9 3.5 - 5.5 mmol/L LAB CHEMISTRY METHOD 02/14/2025 11:01 AM EDT [facility] Chloride 104 96 - 110 mmol/L LAB CHEMISTRY METHOD 02/14/2025 11:01 AM EDT [facility] CO2 28 21 - 32 mmol/L LAB CHEMISTRY METHOD 02/14/2025 11:01 AM EDT [facility] Anion Gap 8 3 - 11 LAB CHEMISTRY METHOD 02/14/2025 11:01 AM [facility] Glucose 90 70 - 100 mg/dL LAB CHEMISTRY METHOD 02/14/2025 11:01 AM [facility] BUN 22 5 - 25 mg/dL LAB CHEMISTRY METHOD 02/14/2025 11:01 AM [facility] Comment:Results verified by repeat testing Creatinine 1.09 0.50 - 1.10 mg/dL LAB CHEMISTRY METHOD 02/14/2025 11:01 AM [facility] eGFR 55(L) >=60 mL/min/1. 73m2 LAB CHEMISTRY METHOD 02/14/2025 11:01 AM [facility] Comment:Calculation based on the Chronic Kidney Disease Epidemiology Collaboration (CKD-EPI) equation refit without adjustment for race. BUN/Creatinine Ratio 20.2 LAB CHEMISTRY METHOD 02/14/2025 11:01 AM [facility] Calcium 9.4 8.5 - 10.5 mg/dL LAB CHEMISTRY METHOD 02/14/2025 11:01 AM [facility] Blood Venous blood specimen / Unknown Venipuncture / Unknown 02/14/2025 8:26 AM EDT 02/14/2025 8:26 AM EDT Alanna [facility] LAB BLOOD ORDERABLES Final Res ult [facility] [address] [place] [address], * (ABNORMAL) Lipid panel (12/15/2023) LDL/HDL Ratio 4 0 - 4 Triglycerides 121 0 - 150 mg/dL Cholesterol 181 0 - 200 mg/dL HDL 47 >=40 mg/dL LDL Cholesterol 110(A) 0 - 100 mg/dL Blood Venous blood specimen / Unknown us Historical Provider LAB BLOOD ORDERABLES Cynthia l Result from Last 3 Months or Most Recently Relevant to Health Maintenance Insurance [employer] [place] Care Teams Charge Rn Relationship Specialty Start Date End Date Soto You MD [address] [place] [phone] PCP - General Internal Medicine 04/29/16
--- OUTSIDE RECORDS SUMMARY | 2025-04-25 15:52 | XMS_ITS | Clinical Summary ---
Author Organization [facility] Address [address] [place], [place] [id number] Phone Care Team Providers Care Mine Motor Engineer Name Role Phone Soto You MD Primary Care Provider [phone] Social History Tobacco Use Types Packs/Day Years [...] Medical Devices Not on file Insurance [facility] [address] [place], [place] [address] O O Care Teams Mine Motor Engineer Relationship Specialty Start Date End Date Soto You MD [address] [place] [id number] PCP - General Internal Medicine 09/07/18 Additional Source Comments The information contained in this document represents components of the legal health record. It is not the complete legal health record.[facility]
--- OUTSIDE RECORDS SUMMARY | 2025-04-25 15:52 | XMS_ITS | Patient Health Record ---
Author Organization [facility] Address [address] [place] [address] Care Team Providers Care Prison Librarian Name Role Phone Sarah Lopez Unavailable [phone] Allergies Allergen (clinical drug ingredient) Drug/Non Drug [...] Status Risk Notes Problem Postmenopausal atrophic vaginitis (67140958) Postmenopausal atrophic vaginitis (N95.2) Active confirmed Problem Rheumatic heart disease (22555551) Rheumatic heart disease, unspecified (I09.9) Active confirmed Plan Of Treatment Pending Test Test Name Order Date MAMMOGRAM, SCREENING 12/11/2019 BONE DENSITY 02/11/2018 MM Digital Mammo Screening 12/11/2019 Insurance Providers Payer Name Payer Address Payer Phone Subscriber Number Group Number Insured Name Patient Relationship to Insured Coverage Start Date Coverage End Date [facility] [address] [place] [address] [id number] DIPTI TRISTAN Self - patient is the [...]
== END 2025-04-25 09:22 | disposition home or self-care (01) ==
LOC: HO.HSMC 08:15
PROVIDERS: PCP Internal Medicine; Visit Provider Physician Assistant Medical
DX: G47.33 Obstructive sleep apnea (adult) (pediatric) (principal); G25.81 Restless legs syndrome; G47.00 Insomnia, unspecified; R53.83 Other fatigue; G47.9 Sleep disorder, unspecified
CPT/HCPCS: 99214

== ENCOUNTER → 2025-04-25 08:14 | Outpatient (BNVA) | payer MEDICARE, MEDICAID, SELFPAY | PROVIDERS: PCP Internal Medicine; Visit Provider Physician Assistant Medical | DX: G47.33 Obstructive sleep apnea (adult) (pediatric) (principal); G25.81 Restless legs syndrome; G47.00 Insomnia, unspecified; R53.83 Other fatigue; G47.9 Sleep disorder, unspecified; Z99.89 Dependence on other enabling machines and devices | CPT/HCPCS: 99212 ==